=== PATIENT | male | born 1995 | race Caucasian/White ===

== ENCOUNTER → 2022-09-29 15:46 | Outpatient (BNVA) | payer SELFPAY | PROVIDERS: PCP Family Medicine; Visit Provider Family Medicine | DX: Z90.5 Acquired absence of kidney (principal) | CPT/HCPCS: 80053; 85025 ==

== ENCOUNTER 2022-12-17 13:54 | Emergency (ER) | payer OTHER, SELFPAY ==
[2022-12-17 13:55] VITALS: BP 135/88; PULSE 94; RESP 16; TEMP 36.6; O2SAT 97
--- NOTE | 2022-12-17 15:24 | W.ED.HA ---
HPI - Headache General: Chief Complaint: Headache Stated Complaint: Weakness, Head pain, Blurred vision Time Seen by Provider: 12/17/22 15:24 Source: patient Mode of arrival: ambulatory History of Present Illness: 27-year-old male presents emergency room complaining of dizziness weakness and some headache is has a history of hypertension has not been taking his blood pressure medications regularly. He previously had a nephrectomy for an unknown reason as a child. He did take his blood pressure medicines yesterday had not taken them for several days his blood pressure decreased to the point where he had a syncopal episode while working yesterday. He has not taken them today. No chest pain or weakness he does have some discomfort in his left leg mostly in the posterior aspect of the leg MD elicited complaint: headache Onset (ago): day(s) Location: frontal Severity: moderate Quality & Timing: throbbing Exacerbating factors: none Relieving factors: nothing Associated symptoms: Reports malaise; Deny chest pain, confusion, cough, diaphoresis, eye pain, eye redness, fever(s), lightheadedness, loss of vision, nausea, neck stiffness, numbness, paresthesias, photophobia, pre-syncope, rash, seizures, short of breath, sound sensitivity, syncope, vomiting or weakness Review of Systems Const: Reports: fatigue and malaise; Denies: fever(s), chills or diaphoresis ENMT: Denies: throat pain, ear or mastoid pain, nasal discharge or nasal congestion Card: Denies: chest pain, palpitations, lightheadedness, syncope or pre-syncope Resp: Denies: dyspnea, productive cough or non-productive cough GI: Denies: abdominal pain, nausea or vomiting : Denies: flank pain, dysuria, urinary frequency or urinary urgency Skin/Breast: Denies: rash Neuro: Denies: confusion PFSH ED PFSH: Medical History History of trigger finger surgical repair HTN (hypertension) Surgical History History of nephrectomy, left (~2007) Family History Grandmother Cancer ovarian Family/Other Cancer x3 maternal aunts-ovarian Other Anesthesia complication CAD (coronary artery disease) Dementia Diabetes Hyperlipidemia Hypertension Lung disease Stroke Denies family history of Clotting disorder Psychiatric illness Chronic kidney disease (CKD) Bleeding disorder Social History Smoking and tobacco status: former smoker Alcohol intake: never Substance/Drug Use: former Date of last use: 07/2022 marijuana Lives independently: Yes Marital status: Single Number of children: 0 Current occupational status: employed Current occupation: EVS in [employer] Current gender identity: Male Special guadalupe needs: No Agree to transfusion: Yes Physical Exam Const: GENERAL APPEARANCE: cooperative and comfortable ORIENTATION/CONSCIOUSNESS: Yes awake, Yes oriented to person, Yes oriented to place and Yes oriented to time HENMT: COMMON NORMALS: normocephalic, atraumatic and hearing grossly normal bilaterally HEAD & SCALP: normocephalic and atraumatic Eye: DIRECT OPHTHALMOSCOPY: No photophobia Resp: COMMON NORMALS: normal respiratory effort, No retractions, No use of accessory muscles and clear to auscultation bilaterally AUSCULTATION: clear to auscultation bilaterally Cardio: COMMON NORMALS: regular rate, regular rhythm and No murmurs present (Cardio) RATE: regular rate RHYTHM: regular rhythm GI: COMMON NORMALS: Soft to palpation and No hepatosplenomegaly present AUSCULTATION: Yes normoactive bowel sounds PALPATION: Yes Soft to palpation, No Tenderness to palpation present (GI), No Guarding due to palpation present (GI) and Yes No hepatosplenomegaly present Extremity: COMMON NORMALS: normal to inspection, capillary refill normal, no clubbing, cyanosis or edema, no calf tenderness and no pedal edema Neuro: SENSORIUM/ORIENTATION: Yes oriented to person, Yes oriented to place and Yes oriented to time Skin: COMMON NORMALS: no rashes or lesions noted GENERAL SKIN EXAM: no rashes or lesions noted Course Vital Signs: Vital signs: Vital Signs Temperature 97.8 F 12/17/22 13:55 Pulse Rate 94 12/17/22 13:55 Respiratory Rate 16 12/17/22 13:55 Blood Pressure 135/88 12/17/22 13:55 Pulse Oximetry 97 12/17/22 13:55 Oxygen Delivery Me thod Room Air 12/17/22 13:55 MDM - Headache Medical Decision Making Exam shows no focal neurologic deficit noted. Patient prescribed his blood pressure is elevated he was given amlodipine 10 lab work was completed blood pressure normalized he states he is feeling much better he still has no focal deficits. Recommend he stop the enalapril and Hydrocort chlorothiazide and switch to amlodipine 5 mg daily continue prazosin monitor blood sugar pressures at home and recheck with his doctor early next week. Medical Records I reviewed the patient's medical records. Lab Data I reviewed the patient's lab results. 12/17/22 15:48 12/17/22 15:48 Radiology Impressions Chest X-Ray 12/17/22 15:26 IMPRESSION: No acute findings. Laboratory Results WBC 10.9 10^3/uL (4.0-10.0) H 12/17/22 15:48 RBC 5.60 10^6/uL (4.1-5.3) H 12/17/22 15:48 Hgb 16.1 g/dL (11.7-16.6) 12/17/22 15:48 Hct 50.0 % (42.0-52.0) 12/17/22 15:48 MCV 89.3 fl (80-94) 12/17/22 15:48 MCH 28.8 pg (28.0-34.0) 12/17/22 15:48 MCHC 32.2 g/dL (30.0-36.0) 12/17/22 15:48 RDW 13.1 % (12.1-15.1) 12/17/22 15:48 Plt Count 291 10^3/cmm (130-400) 12/17/22 15:48 MPV 10.9 fL (7.4-10.4) H 12/17/22 15:48 Neut % (Auto) 65.5 % 12/17/22 15:48 Lymph % (Auto) 21.6 % 12/17/22 15:48 [place] % (Auto) 5.7 % 12/17/22 15:48 Eos % (Auto) 6.4 % 12/17/22 15:48 Baso % (Auto) 0.5 % 12/17/22 15:48 Neut # (Auto) 7.15 10^3/uL (1.8-7.7) 12/17/22 15:48 Lymph # (Auto) 2.4 10^3/uL (0.8-4.8) 12/17/22 15:48 [place] # (Auto) 0.6 10^3/uL (0.2-0.9) 12/17/22 15:48 Eos # (Auto) 0.7 10^3/uL (0.0-0.8) 12/17/22 15:48 Baso # (Auto) 0.1 10^3/uL (0.0-0.1) 12/17/22 15:48 Nucleated RBC % (auto) 0 % 12/17/22 15:48 Nucleated RBCs # 0.0 /100WBC 12/17/22 15:48 Sodium 138 mmol/L (136-145) 12/17/22 15:48 Potassium 4.8 mmol/L (3.5-5.1) 12/17/22 15:48 Chloride 101 mmol/L (98-107) 12/17/22 15:48 Carbon Dioxide 26 mmol/L (22-29) 12/17/22 15:48 Anion Gap 15.8 (5-19) 12/17/22 15:48 BUN 41 mg/dL (6-20) H 12/17/22 15:48 Creatinine 1.6 mg/dL (0.7-1.2) H 12/17/22 15:48 GFR Calculation 51.7 mL/min (90-130) L 12/17/22 15:48 Glucose 88 mg/dL (65-115) 12/17/22 15:48 Calculated Osmolality 296 mOsm/kg (285-295) H 12/17/22 15:48 Calcium 10.0 mg/dL (8.5-10.5) 12/17/22 15:48 Total Bilirubin 0.3 mg/dL (0.15-1.2) 12/17/22 15:48 AST 25 U/L (0-40) 12/17/22 15:48 ALT 25 U/L (0-41) 12/17/22 15:48 Alkaline Phosphatase 75 U/L (40-130) 12/17/22 15:48 Total Protein 7.6 g/dL (6.6-8.7) 12/17/22 15:48 Albumin 4.4 g/dL (3.5-5.2) 12/17/22 15:48 Globulin 3.2 g/dL (1.3-4.6) 12/17/22 15:48 Urine Color Yellow (Yellow) 12/17/22 16:00 Urine Appearance Clear (CLEAR) 12/17/22 16:00 Urine pH 5 (5-7) 12/17/22 16:00 Ur Specific [place] 1.020 (1.005-1.030) 12/17/22 16:00 Urine Protein 3+ (Negative) H 12/17/22 16:00 Urine Glucose (UA) Norm (Normal) 12/17/22 16:00 Urine Ketones Negative (Negative) 12/17/22 16:00 Urine Blood Neg (Negative) 12/17/22 16:00 Urine Nitrate Negative (Negative) 12/17/22 16:00 Urine Bilirubin Neg (Negative) 12/17/22 16:00 Urine Urobilinogen Norm mg/dL (Negative) 12/17/22 16:00 Ur Leukocyte Esterase Negative (Negative) 12/17/22 16:00 Urine RBC None /hpf (0-2) 12/17/22 16:00 Urine WBC None /hpf (0-5) 12/17/22 16:00 Ur Squamous Epith Cells None /hpf (0-5) 12/17/22 16:00 Amorphous Sediment Not Reportable 12/17/22 16:00 Urine Bacteria Trace /hpf (NONE) 12/17/22 16:00 Discharge Plan Discharge Patient Disposition: Home Clinical Impression: HTN (hypertension) Condition: Stable Prescriptions: New amlodipine 5 mg tablet 5 mg PO DAILY Qty: 30 0RF Discontinued hydrochlorothiazide 50 mg tablet 25 mg PO DAILY enalapril maleate 20 mg tablet 20 mg PO DAILY Qty: 30 1RF No Action fluoxetine 20 mg tablet 40 mg PO DAILY Qty: 60 0RF Rx Instructions: 1 tablet x 4 days then 2 tablets daily buspirone 10 mg tablet 10 mg PO BID Qty: 60 0RF prazosin 1 mg capsule 1 mg PO .qhs Qty: 30 0RF Discharge Orders: Discharge ED (Routine); Ordered 12/17/22 Ordered By: Geoff Castillo Referrals: Mike Campos MD [Primary Care Provider] - Discharge Diet: Usual diet Discharge Activity: Resume usual activity Patient Instructions: Opioid Safety, Pain Management Activity Restrictions/Additional Instructions: You are seen today for headache and elevated blood pressure. Recommend you stop the enalapril and hydrochlorothiazide and instead take amlodipine 5 mg daily continue prazosin monitor blood pressures at home and recheck with your primary care doctor next week to review. Stand Alone Forms: Work/School Release Coding Level of Care Code ED Medical Imaging Technologist for Alee Peña
--- NOTE | 2022-12-17 15:25 | ECG_ITS ---
[facility] Test Date: 2022-12-17 Pat Name: Pranav Roberts Department: Room: Gender: Male Cinder Block Mason: : 1995 Requested By: Geoff Caba Order Number: [id number] Ruben MD: Minerva Hoang M.D. Measurements Intervals [place] Rate: 73 P: 7 TN: 184 QRS: 69 QRSD: 86 T: 48 QT: 347 QTc: 384 Interpretive Statements SINUS RHYTHM No previous ECG available for comparison Electronically Signed On 12-18-2022 5:34:49 CDT by Minerva Hoang M.D. [email or web address]
--- NOTE | 2022-12-17 15:26 | XRR_ITS ---
PROCEDURE INFORMATION: Exam: XR Chest Exam date and time: 12/17/2022 3:41 PM Age: 27 years old Clinical indication: Cough and dyspnea; Additional info: Dyspnea/cough TECHNIQUE: Imaging protocol: Radiologic exam of the chest. Views: 1 view. COMPARISON: No relevant prior studies available. FINDINGS: Lungs: Unremarkable. No consolidation. Pleural spaces: Unremarkable. No pleural effusion. No pneumothorax. Heart/Mediastinum: Unremarkable. No cardiomegaly. Bones/joints: Unremarkable. XR/XR chest 1V portable [id number] IMPRESSION: No acute findings.
[2022-12-17] MEDS: amlodipine 5 mg Tablet 2.5 MG PO (15:43)
--- NOTE | 2022-12-17 15:50 | PC.NURSE ---
PT PLACED ON CONTINUOUS SPO2, NIBP, AND CM.
[2022-12-17 16:02] LABS: Basophils # 0.1 10^3/uL (0.0-0.1); Basophils % 0.5 %; Eosinophils # 0.7 10^3/uL (0.0-0.8); Eosinophils % 6.4 %; Hemoglobin 16.1 g/dL (11.7-16.6); Lymphocytes # 2.4 10^3/uL (0.8-4.8); Lymphocytes % 21.6 %; Mean Corpuscular HGB Conc 32.2 g/dL (30.0-36.0); Mean Corpuscular Hemoglobin 28.8 pg (28.0-34.0); Mean Corpuscular Volume 89.3 fl (80-94); Mean Platelet Volume 10.9 fL (7.4-10.4); Monocytes # 0.6 10^3/uL (0.2-0.9); Monocytes % 5.7 %; Neutrophils # 7.15 10^3/uL (1.8-7.7); Neutrophils % 65.5 %; Nucleated Red Blood Cells % 0 %; Platelet Count 291 10^3/cmm (130-400); Red Cell Distribution Width 13.1 % (12.1-15.1); White Blood Count 10.9 10^3/uL (4.0-10.0)
[2022-12-17 16:23] LABS: Alanine Aminotransferase 25 U/L (0-41); Albumin Level 4.4 g/dL (3.5-5.2); Alkaline Phosphatase 75 U/L (40-130); Anion Gap 15.8 (5-19); Aspartate Amino Transferase 25 U/L (0-40); Blood Urea Nitrogen 41 mg/dL (6-20); Carbon Dioxide 26 mmol/L (22-29); Chloride 101 mmol/L (98-107); Globulin 3.2 g/dL (1.3-4.6); Glomerular Filtration Rate 51.7 mL/min (90-130); Glucose 88 mg/dL (65-115); Osmolality Calculated 296 mOsm/kg (285-295); Potassium 4.8 mmol/L (3.5-5.1); Sodium 138 mmol/L (136-145); Total Bilirubin 0.3 mg/dL (0.15-1.2); Total Protein 7.6 g/dL (6.6-8.7)
[2022-12-17 16:28] LABS: Add Urine Microscopic? YES; Bacteria Urine TRACE /hpf; Bilirubin Urine Neg (Negative); Blood Urine Neg (Negative); Glucose Urine UA Norm (Normal); Ketones Urine Negative (Negative); Leukocyte Esterase Urine Negative (Negative); Nitrate Urine Negative (Negative); Protein Urine 3+ (Negative); Urine Appearance Clear (CLEAR); Urine Color Yellow (Yellow); Urobilinogen Urine Norm (Negative); pH Urine 5 (5-7)
[2022-12-17 16:29] LABS: Add Urine Culture? No
[2022-12-17 16:42] VITALS: BP 130/99; PULSE 80; RESP 16; O2SAT 98
== END 2022-12-17 16:43 | disposition home or self-care (01) ==
PROVIDERS: Emergency Provider Family Medicine; PCP Family Medicine
DX: I10 Essential (primary) hypertension (principal); Z87.891 Personal history of nicotine dependence; Z90.5 Acquired absence of kidney
CPT/HCPCS: 71045; 80053; 81001; 85025; 93005; 99285

== ENCOUNTER 2023-06-30 01:18 | Emergency (ER) | payer OTHER, SELFPAY ==
[2023-06-30 01:30] VITALS: BP 168/120; PULSE 100; RESP 20; TEMP 36.6; O2SAT 97
[2023-06-30 01:34] VITALS: BP 168/120
[2023-06-30] MEDS: cloNIDine 0.1 mg Tablet 0.2 MG PO (01:34)
--- NOTE | 2023-06-30 02:02 | W.ED.RECABL ---
HPI - Recheck/Abnormal Lab/Rx General: Chief Complaint: Recheck/Abnormal Lab/Rx Stated Complaint: High BP Time Seen by Provider: 06/30/23 01:27 History of Present Illness: Patient presents to the ER with complaints of elevated blood pressure and headache. Patient is currently on amlodipine 10 mg, losartan 100 mg, he said these have not been working to control his blood pressure but tonight his blood pressure became really elevated and he started having a headache. Review of Systems General: Reports: 10 or more systems reviewed and unremarkable except in HPI and below PFSH ED PFSH: Medical History History of trigger finger surgical repair HTN (hypertension) Surgical History History of nephrectomy, left (~2007) Family History Grandmother Cancer ovarian Family/Other Cancer x3 maternal aunts-ovarian Other Anesthesia complication CAD (coronary artery disease) Dementia Diabetes Hyperlipidemia Hypertension Lung disease Stroke Denies family history of Clotting disorder Psychiatric illness Chronic kidney disease (CKD) Bleeding disorder Social History Smoking and tobacco/nicotine status: former use of tobacco/nicotine Alcohol intake: never Substance/Drug Use: former Date of last use: 07/2022 marijuana Lives independently: Yes Marital status: Single Number of children: 0 Current occupational status: employed Current occupation: [employer]S in [employer] Current gender identity: Male Special guadalupe needs: No Agree to transfusion: Yes Physical Exam HENMT: COMMON NORMALS: normocephalic, atraumatic, hearing grossly normal bilaterally, external ears normal, Normal external nose present, moist oral mucous membranes and oropharynx normal HEAD & SCALP: normocephalic and atraumatic NOSE: Normal external nose present EXTERNAL EAR: Yes external ears normal Neck/C-Spine: COMMON NORMALS: no JVD Resp: COMMON NORMALS: normal respiratory effort, No retractions, No use of accessory muscles and clear to auscultation bilaterally AUSCULTATION: clear to auscultation bilaterally Cardio: COMMON NORMALS: no JVD, regular rate, regular rhythm, S1 normal heart sound present, S2 normal heart sound present, No gallops present (Cardio), No clicks present (Cardio), No murmurs present (Cardio) and No rub (Cardio) RATE: regular rate RHYTHM: regular rhythm HEART SOUNDS: S1 normal heart sound present and S2 normal heart sound present GI: COMMON NORMALS: Normal to inspection, nondistended, normoactive bowel sounds present, Soft to palpation, non-tender, No hepatosplenomegaly present and no masses PALPATION: Yes Soft to palpation and Yes No hepatosplenomegaly present Course Vital Signs: Vital signs: Vital Signs Temperature 98 F 06/30/23 01:30 Pulse Rate 100 06/30/23 01:30 Respiratory Rate 20 H 06/30/23 01:30 Blood Pressure 168/120 06/30/23 01:34 Pulse Oximetry 97 06/30/23 01:30 MDM - Recheck/Abnormal Lab/Rx Medical Decision Making Patient did not want any lab work performed at this time. Just to help with his blood pressure. Patient was given 0.2 mg clonidine and rechecked in approximately 30 minutes blood pressure had improved some but patient's headache had totally gone away. Patient blood pressure continues improved to 141/90. Patient will be placed on hydrochlorothiazide 25 mg to take daily with his current blood pressure medicine and given a prescription for clonidine 0.1 mg 1 p.o. 3 times daily to take if blood pressures greater than 150/100. Differential Diagnosis Unlikely encounter for medication refill, encounter for wound recheck, encounter for recheck of burn, encounter for removal of sutures or warfarin-induced coagulopathy Medical Records I reviewed the patient's medical records. Lab Data I reviewed the patient's lab results. No radiology studies performed this visit Discharge Plan Discharge Patient Disposition: Home Clinical Impression: HTN (hypertension), Headache Condition: Stable Prescriptions: No Action amlodipine 10 mg tablet 10 mg PO DAILY Qty: 90 1RF losartan 100 mg tablet 100 mg PO DAILY Qty: 90 1RF loratadine 10 mg tablet 10 mg PO DAILY Qty: 20 0RF Discharge Orders: Discharge ED (Routine); Ordered 06/30/23 Ordered By: Sherwin Young Referrals: Mike Campos MD [Primary Care Provider] - 1 week Patient Instructions: Hypertension (ED), Headache Activity Restrictions/Additional Instructions: Please take all medicine as prescribed. Please take the additional blood pressure medicine HCTZ 1 pill daily and the clonidine 0.1 mg 1 pill 3 times a day only if your blood pressure greater than 150/100. Please keep a blood pressure log where you take your blood pressure several times throughout the day and take this to your follow-up appointment with your family practice doctor within the next 7 to 10 days. Coding Level of Care Code ED Concrete Tester for Alee Peña
[2023-06-30 02:34] VITALS: BP 128/85; O2SAT 97
== END 2023-06-30 02:35 | disposition home or self-care (01) ==
PROVIDERS: Emergency Provider Emergency Medicine; PCP Family Medicine
DX: I10 Essential (primary) hypertension (principal); R51.9 Headache, unspecified; Z87.891 Personal history of nicotine dependence
CPT/HCPCS: 99283

== ENCOUNTER 2023-07-28 00:59 | Emergency (ER) | payer OTHER, SELFPAY ==
[2023-07-28 01:04] VITALS: BP 148/94; PULSE 78; RESP 16; TEMP 36.6; O2SAT 92
--- NOTE | 2023-07-28 01:07 | W.ED.GENADLT ---
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 States the needle stuck him on the left index finger. It was an 18-gauge needle unsure if it been used. Associated symptoms: Deny chest pain or rash Review of Systems Const: Denies: fever(s) Card: Denies: chest pain GI: Denies: abdominal pain Skin/Breast: Denies: rash PFSH ED PFSH: Medical History History of trigger finger surgical repair HTN (hypertension) Surgical History History of nephrectomy, left (~2007) Family History Grandmother Cancer ovarian Family/Other Cancer x3 maternal aunts-ovarian Other Anesthesia complication CAD (coronary artery disease) Dementia Diabetes Hyperlipidemia Hypertension Lung disease Stroke Denies family history of Clotting disorder Psychiatric illness Chronic kidney disease (CKD) Bleeding disorder Social History Smoking and tobacco/nicotine status: former use of tobacco/nicotine Alcohol intake: never Substance/Drug Use: former Date of last use: 07/2022 marijuana Lives independently: Yes Marital status: Single Number of children: 0 Current occupational status: employed Current occupation: EVS in [employer] Current gender identity: Male Special guadalupe needs: No Agree to transfusion: Yes Physical Exam Const: COMMON NORMALS: no acute distress HENMT: COMMON NORMALS: normocephalic HEAD & SCALP: normocephalic Eye: COMMON NORMALS: conjunctivae normal CONJUNCTIVA: Yes conjunctivae normal Chest: COMMONS NORMALS: normal inspection of the chest Resp: COMMON NORMALS: normal respiratory effort Cardio: COMMON NORMALS: regular rate RATE: regular rate Extremity: NARRATIVE EXTREMITY EXAM: Needlestick to left ring finger Course Vital Signs: Vital signs: Vital Signs Temperature 97.8 F 07/28/23 01:04 Pulse Rate 78 07/28/23 01:04 Respiratory Rate 16 07/28/23 01:04 Blood Pressure 148/94 07/28/23 01:04 Pulse Oximetry 92 07/28/23 01:04 MDM - General Adult Medical Decision Making Patient presents here with needlestick injury to left hand did draw blood work patient stable for discharge No radiology studies performed this visit Discharge Plan Discharge Patient Disposition: Home Clinical Impression: Needlestick injury accident Condition: Stable Prescriptions: No Action amlodipine 10 mg tablet 10 mg PO DAILY Qty: 90 1RF losartan 100 mg tablet 100 mg PO DAILY Qty: 90 1RF loratadine 10 mg tablet 10 mg PO DAILY Qty: 20 0RF hydrochlorothiazide 25 mg tablet 25 mg PO QAM Qty: 30 0RF clonidine HCl 0.1 mg tablet 0.1 mg PO Q8H PRN (Reason: For blood pressure greater than 150/100.) Qty: 30 0RF Discharge Orders: Discharge ED (Routine); Ordered 07/28/23 Ordered By: Satnam Cook Referrals: Mike Campos MD [Primary Care Provider] - Patient Instructions: Needle Stick Injuries (ED) Coding Level of Care Code ED Marine Equipment Research Engineer for Alee Peña
--- NOTE | 2023-07-28 02:04 | PC.NURSE ---
Pt. had blood draw by lab and discharged to follow up with powerhouse electrician on needle stick protocol
[2023-07-28 02:30] LABS: HIV 1 & 2 Antibody Non-Reactive (Non-Reactiv); HIV 1 & 2 Antigen Non-Reactive (Non-Reactiv)
[2023-07-28 02:41] LABS: Hepatitis A Antibody IgM Non-Reactive (Nonreactive); Hepatitis B Core AB, Total Non-Reactive (Nonreactive); Hepatitis B Surface AB < 3.5 (11.5-1000); Hepatitis B Surface Antigen Non-Reactive (Nonreactive); Hepatitis C Virus Antibody Non-Reactive (Nonreactive)
== END 2023-07-28 02:05 | disposition home or self-care (01) ==
PROVIDERS: Emergency Provider Emergency Medicine; PCP Family Medicine
DX: S61.231A Puncture wound without foreign body of left index finger without damage to nail, initial encounter (principal); W46.0XXA Contact with hypodermic needle, initial encounter; I10 Essential (primary) hypertension; Z87.891 Personal history of nicotine dependence
CPT/HCPCS: 36415; 86705; 86706; 86709; 86803; 87340; 87806; 99283

== ENCOUNTER 2023-08-29 12:32 | Outpatient (CLI) | payer OTHER, SELFPAY ==
--- NOTE | 2023-08-29 12:36 | XRR_ITS ---
PROCEDURE INFORMATION: Exam: XR Lumbosacral Spine Exam date and time: 08/29/2023 12:56 PM Age: 27 years old Clinical indication: Low back pain; Additional info: Lower sacral pain TECHNIQUE: Imaging protocol: Radiologic exam of the lumbosacral spine. Views: 2 or 3 views. COMPARISON: No relevant prior studies available. FINDINGS: Tubes, catheters and devices: Surgical clips noted anterior to the spine.No significant soft tissue pathology. Bones/joints: Minimal levocurvature. Minimal reverse listhesis from L2 through L4. Vertebral body and intervertebral disc heights are maintained. Facet joints are unremarkable. No acute fracture or dislocation. Soft tissues: See Tubes, catheters and devices finding. XR/XR lumbar spine 2-3V* [id number] IMPRESSION: No significant pathology.
== END 2023-08-29 12:33 | disposition home or self-care (01) ==
LOC: RAD 12:33
PROVIDERS: PCP Family Medicine; Visit Provider Nurse Practitioner Family
DX: M53.3 Sacrococcygeal disorders, not elsewhere classified (principal)
CPT/HCPCS: 72100

== ENCOUNTER → 2023-08-31 10:42 | Outpatient (BNVA) | payer OTHER, SELFPAY | PROVIDERS: PCP Family Medicine; Visit Provider Family Medicine | DX: I10 Essential (primary) hypertension (principal); L05.91 Pilonidal cyst without abscess; M53.3 Sacrococcygeal disorders, not elsewhere classified; Z90.5 Acquired absence of kidney | CPT/HCPCS: 80053 ==

== ENCOUNTER 2023-10-05 08:30 | Emergency (ER) | payer OTHER, SELFPAY ==
[2023-10-05] VITALS (7 sets, daily range): BP systolic 161–192; BP diastolic 120–132; PULSE 67–74; RESP 16–22; TEMP 37.2; O2SAT 95–100; BMI 32.5
--- NOTE | 2023-10-05 08:35 | XR_ITS ---
WS: [id number] Exam: XR femur RT min 2V* [id number] Date/Time of Exam: 10/05/2023 8:40 AM Reason For Exam: trauma, deformity There is a comminuted fracture at the proximal one third of the RIGHT femur. There is medial angulati on and overriding of the distal fragment. No dislocation identified. IMPRESSION: 1. Comminuted angulated fracture at the junction of the middle and proximal thirds of the femur.
--- NOTE | 2023-10-05 08:36 | CT_ITS ---
WS: [id number] CT HEAD TECHNIQUE: Noncontrast CT of the head obtained from the skullbase to the vertex. CLINICAL INFORMATION: Traumatic head pain COMPARISON: None. DLP: 1401.[address] scans at [facility] use at least one of these dose optimization techniques: automated e xposure control; mA and/or kV adjustment per patient size (includes targeted exams where dose is matc hed to clinical indication); or iterative reconstruction. FINDINGS: No evidence of intracranial hemorrhage or mass effect. Ventricular system and basal cisterns are srivastava nt. No extra-axial fluid collections. No evidence of mass or mass effect. Paranasal sinuses and mastoid air cells are well aerated. .Normal visualized soft tissues. IMPRESSION: 1. No evidence of intracranial hemorrhage or mass effect. 2. No acute intracranial findings.
--- NOTE | 2023-10-05 08:36 | CT_ITS ---
WS: [id number] CT CERVICAL TRAUMA TECHNIQUE: Noncontrast CT of the cervical spine with coronal and sagittal reformatted images. CLINICAL INFORMATION: trauma COMPARISON: None. DLP: 1401.[address] scans at [facility] use at least one of these dose optimization techniques: automated e xposure control; mA and/or kV adjustment per patient size (includes targeted exams where dose is matc hed to clinical indication); or iterative reconstruction. FINDINGS: Straightening of the normal cervical lordosis. Normal craniocervical junction. Normal C1-C2 articulat ion. Dens is normal in appearance. Normal occipital condyles. No high-grade spinal canal narrowing. N ormal C1 ring. No evidence of acute fracture or dislocation. Normal prevertebral soft tissues. Mastoids air cells are well aerated. IMPRESSION: No evidence of acute fracture or dislocation.
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
[2023-10-05] MEDS: HYDROmorphone 1 mg/mL INJ 1 mL IVP ×2 (08:41→09:23)
[2023-10-05] MEDS: ondansetron 2 mg/ML SDV 2 mL 4 MG IVP (08:42)
--- NOTE | 2023-10-05 08:56 | PC.PHAR ---
UNSURE IF PT HAS TAKEN MEDICATIONS TODAY, WILL FOLLOW UP AFTER CT. 10/05/23
[2023-10-05 08:57] LABS: Basophils # 0.1 10^3/uL (0.0-0.1); Basophils % 0.8 %; Eosinophils % 6.2 %; Hematocrit 41.8 % (37-53); Lymphocytes % 19.2 %; Mean Corpuscular HGB Conc 32.5 g/dL (30-55); Mean Corpuscular Hemoglobin 28.8 pg (27-33); Mean Corpuscular Volume 88.4 fl (82-101); Monocytes # 0.7 10^3/uL (0.2-0.9); Monocytes % 4.6 %; Neutrophils # 10.53 10^3/uL (1.8-7.7); Neutrophils % 68.7 %; Nucleated Red Blood Cells % 0 %; Platelet Count 280 10^3/cmm (157-399); Red Blood Count 4.73 10^6/uL (3.85-5.65); Red Cell Distribution Width 13.2 % (12.1-15.1); White Blood Count 15.33 10^3/uL (3.29-11.43)
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
[2023-10-05 09:09] LABS: Chloride 99 mmol/L (98-107); Potassium 3.9 mmol/L (3.5-5.1); Sodium 136 mmol/L (136-145)
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
[2023-10-05 09:28] LABS: Alanine Aminotransferase 25 U/L (0-41); Albumin Level 4.1 g/dL (3.5-5.2); Alkaline Phosphatase 81 U/L (40-130); Anion Gap 14.9 (5-19); Blood Urea Nitrogen 31 mg/dL (6-20); Carbon Dioxide 25 mmol/L (22-29); Globulin 2.4 g/dL (1.3-4.6); Glomerular Filtration Rate 44.8 mL/min (90-130); Glucose 110 mg/dL (65-115); Osmolality Calculated 289 mOsm/kg (285-295); Total Bilirubin 0.4 mg/dL (0.15-1.2); Total Protein 6.5 g/dL (6.6-8.7)
[2023-10-05 09:32] LABS: Creatinine Clr Calc Pharmacy 70.5193
[2023-10-05 09:34] LABS: Aspartate Amino Transferase 30 U/L (0-40)
--- NOTE | 2023-10-05 09:34 | ECG_ITS ---
[facility] Test Date: 2023-10-05 Pat Name: Pranav Roberts Department: Room: Gender: Male Sales Order Specialist: : 1995 Requested By: Marianne Caba Order Number: [id number] Miranda MD: Sudhakar Rodriguez M.D. Measurements Intervals [place] Rate: 68 P: 46 MS: 205 QRS: 46 QRSD: 102 T: 46 QT: 396 QTc: 422 Interpretive Statements SINUS RHYTHM Compared to ECG 12/17/2022 15:51:27 No significant changes Electronically Signed On 10-05-2023 9:46:23 CDT by Sudhakar Rodriguez M.D. [id number]
[2023-10-05] MEDS: HYDROmorphone 1 mg/mL INJ 1 mL 2 MG IVP ×2 (10:10→11:08)
== END 2023-10-05 11:30 | disposition short-term general hospital (02) ==
PROVIDERS: Emergency Provider Emergency Medicine; PCP Family Medicine
DX: S72.001A Fracture of unspecified part of neck of right femur, initial encounter for closed fracture (principal); I12.9 Hypertensive chronic kidney disease with stage 1 through stage 4 chronic kidney disease, or unspecified chronic kidney disease; N18.9 Chronic kidney disease, unspecified; Z87.891 Personal history of nicotine dependence; Z90.5 Acquired absence of kidney; V89.2XXA Person injured in unspecified motor-vehicle accident, traffic, initial encounter
CPT/HCPCS: 70450; 71045; 72125; 72192; 73552; 73700; 80053; 83605; 85025; 93005; 96374; 96375; 96376; 99285; J1170; J2405

== ENCOUNTER → 2023-10-18 15:20 | Outpatient (BNVA) | payer OTHER, SELFPAY | PROVIDERS: PCP Family Medicine; Visit Provider Family Medicine | DX: N18.32 Chronic kidney disease, stage 3b | CPT/HCPCS: 80048; 82570; 84156 ==

== ENCOUNTER 2023-10-19 12:43 | Outpatient (CLI) | payer OTHER, SELFPAY ==
--- NOTE | 2023-10-19 12:49 | US_ITS ---
WS: [id number] RENAL ULTRASOUND URINARY BLADDER ULTRASOUND HISTORY: CHRONIC KIDNEY DZ/STAGE 3A/ESSENTIAL HYPERTENSION COMPARISON: None available. TECHNIQUE: 2-D and color Doppler imaging of the kidney submitted. Right kidney: 10.5 cm x 4.8 cm x 5.7 cm. Echogenic kidney. RIGHT kidney is much more echogenic than the adjacent liver. No mass or hydronephro sis. Left kidney: Prior LEFT nephrectomy. Aorta: Normal. Urinary Bladder: Prevoid bladder volume is 634 mm. No intraluminal filling defect. No post void residual. Post void volume 11 mm. IMPRESSION: 1. Status post LEFT nephrectomy. 2. Normal size RIGHT kidney but very echogenic consistent with chronic medical renal disease. 3. No significant post void residual in the urinary bladder.
== END 2023-10-19 12:44 | disposition home or self-care (01) ==
PROVIDERS: PCP Family Medicine; Visit Provider Nurse Practitioner Gerontology
DX: I12.9 Hypertensive chronic kidney disease with stage 1 through stage 4 chronic kidney disease, or unspecified chronic kidney disease (principal); N18.31 Chronic kidney disease, stage 3a; Z90.5 Acquired absence of kidney
CPT/HCPCS: 76770; 76857

== ENCOUNTER 2023-11-15 13:51 | Outpatient (RCR) | payer OTHER, SELFPAY | END 2023-12-08 23:59 | disposition home or self-care (01) | LOC: SPT 13:51 | PROVIDERS: PCP Family Medicine; Visit Provider Family Medicine | DX: S72.91XD Unspecified fracture of right femur, subsequent encounter for closed fracture with routine healing (principal); X58.XXXD Exposure to other specified factors, subsequent encounter | CPT/HCPCS: 97110; 97161 ==

== ENCOUNTER 2023-12-09 06:00 | Outpatient (RCR) | payer OTHER, SELFPAY | END 2023-12-21 23:59 | disposition home or self-care (01) | LOC: SPT 06:00 | PROVIDERS: PCP Family Medicine; Visit Provider Family Medicine | DX: S72.91XD Unspecified fracture of right femur, subsequent encounter for closed fracture with routine healing (principal); X58.XXXD Exposure to other specified factors, subsequent encounter | CPT/HCPCS: 97110 ==

== ENCOUNTER 2023-12-12 12:07 | Outpatient (CLI) | payer OTHER, SELFPAY ==
--- NOTE | 2023-12-12 12:14 | XR_ITS ---
WS: [id number] XR femur RT min 2V* [id number] REASON FOR EXAM: fall on recently fractured femur FINDINGS: No previous postoperative examination for comparison. Long intramedullary tika and femoral neck nail fixation of proximal right femur fracture. Surgical appliances are intact and in proper position and alignment. Fracture fragments are in good position and alignment. Callus formation at the distal end of the fracture line. No new acute fracture identified. XR/XR femur RT min 2V* [id number] IMPRESSION: Healing proximal right femoral fracture with internal fixation. No acute abnorm ality identified.
== END 2023-12-12 12:08 | disposition home or self-care (01) ==
PROVIDERS: PCP Family Medicine; Visit Provider Family Medicine
DX: S72.91XA Unspecified fracture of right femur, initial encounter for closed fracture (principal); W19.XXXA Unspecified fall, initial encounter; Z96.698 Presence of other orthopedic joint implants
CPT/HCPCS: 73552

== ENCOUNTER 2024-02-03 03:42 | Emergency (ER) | payer OTHER, SELFPAY ==
[2024-02-03 03:52] VITALS: BP 149/105; PULSE 90; RESP 20; TEMP 36.6; O2SAT 99; BMI 31.0
[2024-02-03 04:04] VITALS: BP 149/105; PULSE 94; RESP 18; O2SAT 95
[2024-02-03 04:31] LABS: Basophils # 0.1 10^3/uL (0.0-0.1); Basophils % 0.8 %; Eosinophils # 0.5 10^3/uL (0.0-0.8); Eosinophils % 7.1 %; Hematocrit 39.7 % (37-53); Mean Corpuscular Hemoglobin 26.7 pg (27-33); Mean Corpuscular Volume 83.4 fl (82-101); Mean Platelet Volume 10.4 fL (7.4-10.4); Monocytes # 0.4 10^3/uL (0.2-0.9); Neutrophils # 4.25 10^3/uL (1.8-7.7); Neutrophils % 58.8 %; Nucleated Red Blood Cells % 0 %; Platelet Count 316 10^3/cmm (157-399); Red Blood Count 4.76 10^6/uL (3.85-5.65); White Blood Count 7.22 10^3/uL (3.29-11.43)
[2024-02-03 04:41] LABS: Alanine Aminotransferase 13 U/L (0-41); Albumin Level 3.9 g/dL (3.5-5.2); Alkaline Phosphatase 288 U/L (40-130); Aspartate Amino Transferase 15 U/L (0-40); Blood Urea Nitrogen 13 mg/dL (6-20); C Reactive Protein 13.2 mg/L (0.0-4.9); Calcium 8.9 mg/dL (8.5-10.5); Carbon Dioxide 26 mmol/L (22-29); Chloride 104 mmol/L (98-107); Globulin 3.1 g/dL (1.3-4.6); Glomerular Filtration Rate 47.9 mL/min (90-130); Glucose 128 mg/dL (65-115); Lipase 25 U/L (13-60); Osmolality Calculated 292 mOsm/kg (285-295); Sodium 140 mmol/L (136-145); Total Bilirubin 0.3 mg/dL (0.15-1.2)
[2024-02-03 05:03] LABS: D Dimer 1.22 ug/mLFEU (0-0.59)
[2024-02-03] MEDS: sodium chloride 0.9% 1,000 ML 999 ML IV (05:03)
[2024-02-03] MEDS: HYDROmorphone 1 mg/mL INJ 1 mL IVP (05:03)
[2024-02-03] MEDS: ondansetron 2 mg/ML SDV 2 mL 4 MG IVP (05:03)
--- NOTE | 2024-02-03 05:05 | ED_ITS ---
Documented by User: Tucker Rodriguez DO 02/03/24 16:34 HPI - Abdominal Pain 2 General: Chief Complaint: Abdominal Pain Stated Complaint: rib flank right side pain Time Seen by Provider: 02/03/24 04:42 History of Present Illness: 28-year-old male with a history of left nephrectomy, and chronic kidney disease. Presents with right-sided flank pain that was sudden onset last night. He is not overly tender to touch. Perhaps some mild shortness of breath. No vomiting. PFSH ED 2 PFSH: Medical History History of trigger finger surgical repair HTN (hypertension) Surgical History History of nephrectomy, left (~2007) Family History Grandmother Cancer ovarian Family/Other Cancer x3 maternal aunts-ovarian Other Anesthesia complication CAD (coronary artery disease) Dementia Diabetes Hyperlipidemia Hypertension Lung disease Stroke Denies family history of Clotting disorder Psychiatric illness Chronic kidney disease (CKD) Bleeding disorder Social History Smoking and tobacco/nicotine status: former use of tobacco/nicotine Alcohol intake: never Substance/Drug Use: former Date of last use: 07/2022 marijuana Lives independently: Yes Marital status: Single Number of children: 0 Current occupational status: employed Current occupation: [employer] in [employer] Current gender identity: Male Special guadalupe needs: No Agree to transfusion: Yes Physical Exam 2 Const: COMMON NORMALS: no acute distress GENERAL APPEARANCE: cooperative; not ill appearing and not frail appearing HENMT: COMMON NORMALS: normocephalic, atraumatic and Normal external nose present HEAD & SCALP: normocephalic and atraumatic FACE & SINUS: normal facial exam and face symmetric NOSE: Normal external nose present Eye: COMMON NORMALS: Equal, round and reactive pupils present and EOMs intact bilaterally PUPIL: Yes Equal, round and reactive pupils present Neck/C-Spine: GENERAL: Yes trachea midline Chest: CHEST: Yes Symmetrical chest wall rise Resp: COMMON NORMALS: normal respiratory effort, No retractions, No use of accessory muscles and clear to auscultation bilaterally AUSCULTATION: clear to auscultation bilaterally Cardio: COMMON NORMALS: regular rate and regular rhythm RATE: regular rate RHYTHM: regular rhythm GI: COMMON NORMALS: Normal to inspection, nondistended, normoactive bowel sounds present Extremity: COMMON NORMALS: no pedal edema Neuro: ARCENIO COMA SCALE: document GCS findings Arcenio coma scale eye opening: Spontaneous [place] coma scale verbal response: Orientated Arcenio coma scale motor response: Obey commands [place] coma scale total score: 15 S ENSORY EXAM: Yes extremities (intact) Psych: COMMON NORMALS: speech normal SPEECH: Yes normal speech Skin: COMMON NORMALS: no rashes or lesions noted GENERAL SKIN EXAM: no rashes or lesions noted Course 2 Vital Signs: Vital signs: Vital Signs Temperature 98 F 02/03/24 03:52 Pulse Rate 94 02/03/24 04:04 Respiratory Rate 16 02/03/24 06:17 Blood Pressure 149/105 02/03/24 04:04 Pulse Oximetry 96 02/03/24 06:17 Oxygen Delivery Me thod Room Air 02/03/24 06:17 MDM - Abdominal Pain Medical Decision Making 28-year-old male with chronic kidney disease. He presents with right-sided flank pain, chest pain, nausea. White blood cell count is 7. Hemoglobin is 12. His D-dimer is significantly elevated at 1.2. CRP is minimally elevated at 13. Other laboratory is not remarkable. Urinalysis is pending. CTA of the chest with abdomen pelvis follow-through is pending as well. Lab Data 02/03/24 03:58 02/03/24 03:58 Labs/Radiology: Radiology Impressions Chest/Abdomen/Pelvis CT 02/03/24 05:09 IMPRESSION: 1. No evidence of pulmonary embolus. 2. Long segment thickening of the esophageal mucosa suggestive of reflux esophagitis. 3. Multiple nodular opacities at the left lung base, likely infectious in etiology. Hypersensitivity pneumonitis may present a similar picture. IMPRESSION: 1. No right renal or obstructive ureteral calculi identified. There is no hydronephrosis. 2. Wall thickening of gastric, duodenal and bowel loops suggestive of gastroenteritis. 3. A 10 mm indeterminate lesion in the right lobe of the liver. Correlation with abdominal MRI may be helpful for further characterization if clinically indicated. Laboratory Results WBC 7.22 10^3/uL (3.29-11.43) 02/03/24 03:58 RBC 4.76 10^6/uL (3.85-5.65) 02/03/24 03:58 Hgb 12.70 g/dL (11.27-16.99) 02/03/24 03:58 Hct 39.7 % (37-53) 02/03/24 03:58 MCV 83.4 fl (82-101) 02/03/24 03:58 MCH 26.7 pg (27-33) L 02/03/24 03:58 MCHC 32.0 g/dL (30-55) 02/03/24 03:58 RDW 14.0 % (12.1-15.1) 02/03/24 03:58 Plt Count 316 10^3/cmm (157-399) 02/03/24 03:58 MPV 10.4 fL (7.4-10.4) 02/03/24 03:58 Neut % (Auto) 58.8 % 02/03/24 03:58 Lymph % (Auto) 27.0 % 02/03/24 03:58 [place] % (Auto) 6.0 % 02/03/24 03:58 Eos % (Auto) 7.1 % 02/03/24 03:58 Baso % (Auto) 0.8 % 02/03/24 03:58 Neut # (Auto) 4.25 10^3/uL (1.8-7.7) 02/03/24 03:58 Lymph # (Auto) 2.0 10^3/uL (0.8-4.8) 02/03/24 03:58 [place] # (Auto) 0.4 10^3/uL (0.2-0.9) 02/03/24 03:58 Eos # (Auto) 0.5 10^3/uL (0.0-0.8) 02/03/24 03:58 Baso # (Auto) 0.1 10^3/uL (0.0-0.1) 02/03/24 03:58 Nucleated RBC % (auto) 0 % 02/03/24 03:58 Nucleated RBCs # 0.0 /100WBC 02/03/24 03:58 D-Dimer 1.22 ug/mLFEU (0-0.59) H 02/03/24 03:58 Sodium 140 mmol/L (136-145) 02/03/24 03:58 Potassium 4.0 mmol/L (3.5-5.1) 02/03/24 03:58 Chloride 104 mmol/L (98-107) 02/03/24 03:58 Carbon Dioxide 26 mmol/L (22-29) 02/03/24 03:58 Anion Gap 14.0 (5-19) 02/03/24 03:58 BUN 13 mg/dL (6-20) 02/03/24 03:58 Creatinine 1.7 mg/dL (0.7-1.2) H 02/03/24 03:58 GFR Calculation 47.9 mL/min (90-130) L 02/03/24 03:58 Glucose 128 mg/dL (65-115) H 02/03/24 03:58 Calculated Osmolality 292 mOsm/kg (285-295) 02/03/24 03:58 Calcium 8.9 mg/dL (8.5-10.5) 02/03/24 03:58 Total Bilirubin 0.3 mg/dL (0.15-1.2) 02/03/24 03:58 AST 15 U/L (0-40) 02/03/24 03:58 ALT 13 U/L (0-41) 02/03/24 03:58 Alkaline Phosphatase 288 U/L (40-130) H 02/03/24 03:58 C-Reactive Protein 13.2 mg/L (0.0-4.9) H 02/03/24 03:58 Total Protein 7.0 g/dL (6.6-8.7) 02/03/24 03:58 Albumin 3.9 g/dL (3.5-5.2) 02/03/24 03:58 Globulin 3.1 g/dL (1.3-4.6) 02/03/24 03:58 Lipase 25 U/L (13-60) 02/03/24 03:58 Urine Color Yellow (Yellow) 02/03/24 05:55 Urine Appearance Clear (CLEAR) 02/03/24 05:55 Urine pH 7 (5-7) 02/03/24 05:55 Ur Specific [place] 1.005 (1.005-1.030) 02/03/24 05:55 Urine Protein 2+ (Negative) H 02/03/24 05:55 Urine Glucose (UA) Norm (Normal) 02/03/24 05:55 Urine Ketones Negative (Negative) 02/03/24 05:55 Urine Blood Neg (Negative) 02/03/24 05:55 Urine Nitrate Negative (Negative) 02/03/24 05:55 Urine Bilirubin Neg (Negative) 02/03/24 05:55 Urine Urobilinogen Norm mg/dL (Negative) 02/03/24 05:55 Ur Leukocyte Esterase Negative (Negative) 02/03/24 05:55 Urine RBC None /hpf (0-2) 02/03/24 05:55 Urine WBC 0-4 /hpf (0-5) H 02/03/24 05:55 Ur Squamous Epith Cells None /hpf (0-5) 02/03/24 05:55 Amorphous Sediment Not Reportable 02/03/24 05:55 Urine Bacteria Trace /hpf (NONE) 02/03/24 05:55 Discharge Plan Discharge Patient Disposition: Home Clinical Impression: Gastroenteritis Condition: Stable Prescriptions: New promethazine 25 mg tablet 25 mg PO Q6H PRN (Reason: nausea and vomiting) Qty: 20 0RF No Action hydrochlorothiazide 25 mg tablet 25 mg PO QAM Qty: 90 1RF Eliquis 2.5 mg tablet 2.5 mg PO BID bisacodyl [Dulcolax (bisacodyl)] 5 mg tablet,delayed release (DR/EC) 10 mg PO DAILY Qty: 60 0RF polyethylene glycol 3350 [Miralax] 17 gram/dose powder 17 g PO DAILY PRN (Reason: constipation) Qty: 238 2RF loratadine 10 mg tablet 10 mg PO DAILY Qty: 20 0RF methocarbamol 500 mg tablet 500 mg PO QID hydrocodone-acetaminophen 5-325 mg tablet 1 tab PO BID PRN (Reason: pain) 5 Days Qty: 10 0RF amlodipine 10 mg tablet 10 mg PO DAILY Qty: 90 1RF losartan 100 mg tablet 100 mg PO DAILY Qty: 90 1RF clonidine HCl 0.1 mg tablet 0.1 mg PO Q8H PRN (Reason: For blood pressure greater than 150/100.) Qty: 30 0RF Discharge Orders: Discharge ED (Routine); Ordered 02/03/24 Ordered By: Geoff Castillo Referrals: Mike Campos MD [Primary Care Provider] - Patient Instructions: Clear Liquid Diet (ED), Gastroenteritis (ED), Opioid Safety, Pain Management Activity Restrictions/Additional Instructions: Thank you for choosing [facility] for your healthcare needs today. It is very important that you follow up as instructed or that you return to the Emergency Department should you have concerns or if your condition changes or worsens in any way. Sign Out Sign Out Data: Patient Sign Out occurred on 02/03/24 at 06:21. Patient's care was discussed, and care was transferred from Tucker Rodriguez DO to Geoff Castillo DO. Coding Level of Care Code ED Agricultural Education Instructor for Chg Fwd Documented by User: Geoff Castillo DO 02/03/24 14:15 HPI - Abdominal Pain 2 General: Chief Complaint: Abdominal Pain Stated Complaint: rib flank right side pain Time Seen by Provider: 02/03/24 04:42 History of Present Illness: Associated Symptoms: Denies chills, dysuria and fever(s) Review of Systems 2 Const: Denies: fever(s) or chills Card: Denies: chest pain Resp: Reports: dyspnea; Denies: productive cough, non-productive cough or wheezing GI: Denies: abdominal pain : Denies: dysuria, urinary frequency or urinary urgency Musc: Denies: neck pain or back pain Skin/Breast: Denies: rash PFSH ED 2 PFSH: Medical History History of trigger finger surgical repair HTN (hypertension) Surgical History History of nephrectomy, left (~2007) Family History Grandmother Cancer ovarian Family/Other Cancer x3 maternal aunts-ovarian Other Anesthesia complication CAD (coronary artery disease) Dementia Diabetes Hyperlipidemia Hypertension Lung disease Stroke Denies family history of Clotting disorder Psychiatric illness Chronic kidney disease (CKD) Bleeding disorder Social History Smoking and tobacco/nicotine status: former use of tobacco/nicotine Alcohol intake: never Substance/Drug Use: former Date of last use: 07/2022 marijuana Lives independently: Yes Marital status: Single Number of children: 0 Current occupational status: employed Current occupation: [employer] in [employer] Current gender identity: Male Special guadalupe needs: No Agree to transfusion: Yes Physical Exam 2 Const: ORIENTATION/CONSCIOUSNESS: Yes awake, Yes oriented to person, Yes oriented to place and Yes oriented to time GI: COMMON NORMALS: Soft to palpation and No hepatosplenomegaly present A USCULTATION: Yes normoactive bowel sounds PALPATION: Yes Soft to palpation, No Tenderness to palpation present (GI), No Guarding due to palpation present (GI) and Yes No hepatosplenomegaly present Neuro: ARCENIO COMA SCALE: document GCS findings Arcenio coma scale total score: 15 SENSORIUM/ORIENTATION: Yes oriented to person, Yes oriented to place and Yes oriented to time Course 2 Vital Signs: Vital signs: Vital Signs Temperature 98 F 02/03/24 03:52 Pulse Rate 94 02/03/24 04:04 Respiratory Rate 16 02/03/24 06:17 Blood Pressure 149/105 02/03/24 04:04 Pulse Oximetry 96 02/03/24 06:17 Oxygen Delivery Me thod Room Air 02/03/24 06:17 MDM - Abdominal Pain Medical Decision Making 28-year-old male with chronic kidney disease. He presents with right-sided flank pain, chest pain, nausea. White blood cell count is 7. Hemoglobin is 12. His D-dimer is significantly elevated at 1.2. CRP is minimally elevated at 13. Other laboratory is not remarkable. Urinalysis is pending. CTA of the chest with abdomen pelvis follow-through is pending as well.' Care assumed at shift labs and imaging reviewed no acute findings some suggestive of reflux and gastroenteritis to clear liquid diet. Advance as tolerated use promethazine as needed. Patient denies significant amount of reflux symptoms. Return if he has further problems. Medical Records I reviewed the patient's medical records. Lab Data I reviewed the patient's lab results. 02/03/24 03:58 07/27/24 03:58 Labs/Radiology: Radiology Impressions Chest/Abdomen/Pelvis CT 02/03/24 05:09 IMPRESSION: 1. No evidence of pulmonary embolus. 2. Long segment thickening of the esophageal mucosa suggestive of reflux esophagitis. 3. Multiple nodular opacities at the left lung base, likely infectious in etiology. Hypersensitivity pneumonitis may present a similar picture. IMPRESSION: 1. No right renal or obstructive ureteral calculi identified. There is no hydronephrosis. 2. Wall thickening of gastric, duodenal and bowel loops suggestive of gastroenteritis. 3. A 10 mm indeterminate lesion in the right lobe of the liver. Correlation with abdominal MRI may be helpful for further characterization if clinically indicated. Laboratory Results WBC 7.22 10^3/uL (3.29-11.43) 02/03/24 03:58 RBC 4.76 10^6/uL (3.85-5.65) 02/03/24 03:58 Hgb 12.70 g/dL (11.27-16.99) 02/03/24 03:58 Hct 39.7 % (37-53) 02/03/24 03:58 MCV 83.4 fl (82-101) 02/03/24 03:58 MCH 26.7 pg (27-33) L 02/03/24 03:58 MCHC 32.0 g/dL (30-55) 02/03/24 03:58 RDW 14.0 % (12.1-15.1) 02/03/24 03:58 Plt Count 316 10^3/cmm (157-399) 02/03/24 03:58 MPV 10.4 fL (7.4-10.4) 02/03/24 03:58 Neut % (Auto) 58.8 % 02/03/24 03:58 Lymph % (Auto) 27.0 % 02/03/24 03:58 [place] % (Auto) 6.0 % 02/03/24 03:58 Eos % (Auto) 7.1 % 02/03/24 03:58 Baso % (Auto) 0.8 % 02/03/24 03:58 Neut # (Auto) 4.25 10^3/uL (1.8-7.7) 02/03/24 03:58 Lymph # (Auto) 2.0 10^3/uL (0.8-4.8) 02/03/24 03:58 [place] # (Auto) 0.4 10^3/uL (0.2-0.9) 02/03/24 03:58 Eos # (Auto) 0.5 10^3/uL (0.0-0.8) 02/03/24 03:58 Baso # (Auto) 0.1 10^3/uL (0.0-0.1) 02/03/24 03:58 Nucleated RBC % (auto) 0 % 02/03/24 03:58 Nucleated RBCs # 0.0 /100WBC 02/03/24 03:58 D-Dimer 1.22 ug/mLFEU (0-0.59) H 02/03/24 03:58 Sodium 140 mmol/L (136-145) 02/03/24 03:58 Potassium 4.0 mmol/L (3.5-5.1) 02/03/24 03:58 Chloride 104 mmol/L (98-107) 02/03/24 03:58 Carbon Dioxide 26 mmol/L (22-29) 02/03/24 03:58 Anion Gap 14.0 (5-19) 02/03/24 03:58 BUN 13 mg/dL (6-20) 02/03/24 03:58 Creatinine 1.7 mg/dL (0.7-1.2) H 02/03/24 03:58 GFR Calculation 47.9 mL/min (90-130) L 02/03/24 03:58 Glucose 128 mg/dL (65-115) H 02/03/24 03:58 Calculated Osmolality 292 mOsm/kg (285-295) 02/03/24 03:58 Calcium 8.9 mg/dL (8.5-10.5) 02/03/24 03:58 Total Bilirubin 0.3 mg/dL (0.15-1.2) 02/03/24 03:58 AST 15 U/L (0-40) 02/03/24 03:58 ALT 13 U/L (0-41) 02/03/24 03:58 Alkaline Phosphatase 288 U/L (40-130) H 02/03/24 03:58 C-Reactive Protein 13.2 mg/L (0.0-4.9) H 02/03/24 03:58 Total Protein 7.0 g/dL (6.6-8.7) 02/03/24 03:58 Albumin 3.9 g/dL (3.5-5.2) 02/03/24 03:58 Globulin 3.1 g/dL (1.3-4.6) 02/03/24 03:58 Lipase 25 U/L (13-60) 02/03/24 03:58 Urine Color Yellow (Yellow) 02/03/24 05:55 Urine Appearance Clear (CLEAR) 02/03/24 05:55 Urine pH 7 (5-7) 02/03/24 05:55 Ur Specific [place] 1.005 (1.005-1.030) 02/03/24 05:55 Urine Protein 2+ (Negative) H 02/03/24 05:55 Urine Glucose (UA) Norm (Normal) 02/03/24 05:55 Urine Ketones Negative (Negative) 02/03/24 05:55 Urine Blood Neg (Negative) 02/03/24 05:55 Urine Nitrate Negative (Negative) 02/03/24 05:55 Urine Bilirubin Neg (Negative) 02/03/24 05:55 Urine Urobilinogen Norm mg/dL (Negative) 02/03/24 05:55 Ur Leukocyte Esterase Negative (Negative) 02/03/24 05:55 Urine RBC None /hpf (0-2) 02/03/24 05:55 Urine WBC 0-4 /hpf (0-5) H 02/03/24 05:55 Ur Squamous Epith Cells None /hpf (0-5) 02/03/24 05:55 Amorphous Sediment Not Reportable 02/03/24 05:55 Urine Bacteria Trace /hpf (NONE) 02/03/24 05:55 All radiology interpretation(s) finalized by discharge Discharge Plan Discharge Patient Disposition: Home Clinical Impression: Gastroenteritis Condition: Stable Prescriptions: New promethazine 25 mg tablet 25 mg PO Q6H PRN (Reason: nausea and vomiting) Qty: 20 0RF No Action hydrochlorothiazide 25 mg tablet 25 mg PO QAM Qty: 90 1RF Eliquis 2.5 mg tablet 2.5 mg PO BID bisacodyl [Dulcolax (bisacodyl)] 5 mg tablet,delayed release (DR/EC) 10 mg PO DAILY Qty: 60 0RF polyethylene glycol 3350 [Miralax] 17 gram/dose powder 17 g PO DAILY PRN (Reason: constipation) Qty: 238 2RF loratadine 10 mg tablet 10 mg PO DAILY Qty: 20 0RF methocarbamol 500 mg tablet 500 mg PO QID hydrocodone-acetaminophen 5-325 mg tablet 1 tab PO BID PRN (Reason: pain) 5 Days Qty: 10 0RF amlodipine 10 mg tablet 10 mg PO DAILY Qty: 90 1RF losartan 100 mg tablet 100 mg PO DAILY Qty: 90 1RF clonidine HCl 0.1 mg tablet 0.1 mg PO Q8H PRN (Reason: For blood pressure greater than 150/100.) Qty: 30 0RF Discharge Orders: Discharge ED (Routine); Ordered 02/03/24 Ordered By: Geoff Castillo Referrals: Mike Campos MD [Primary Care Provider] - Patient Instructions: Clear Liquid Diet (ED), Gastroenteritis (ED), Opioid Safety, Pain Management Activity Restrictions/Additional Instructions: Thank you for choosing [facility] for your healthcare needs today. It is very important that you follow up as instructed or that you return to the Emergency Department should you have concerns or if your condition changes or worsens in any way. Sign Out Sign Out Data: Patient Sign Out occurred on 02/03/24 at 06:21. Patient's care was discussed, and care was transferred from Tucker Rodriguez DO to Geoff Castillo DO. Coding Level of Care Code ED Agricultural Education Instructor for Alee Peña
--- NOTE | 2024-02-03 05:09 | CTR_ITS ---
PROCEDURE INFORMATION: Exam: CTA Chest With Contrast Exam date and time: 02/03/2024 5:21 AM Age: 28 years old Clinical indication: Pain and abnormal findings; Abnormal lab test; Other: N/a; Abdominal pain; Right; Abnormal diagnostic tests; Elevated d-dimer; Prior surgery; Surgery date: 6+ months; Surgery type: Left nephrectomy. Left femur orif. Patient HX: C/O RT flank pain with dimer 1.22. History of stage iii ckd. ; Additional info: R flank pain, elevated d dimer TECHNIQUE: Imaging protocol: Computed tomographic angiography of the chest with contrast. Exam focused on the arteries. 3D rendering (Not supervised by radiologist): MIP and/or 3D reconstructed images were created by the technologist. Radiation optimization: All CT scans at this facility use at least one of these dose optimization techniques: automated exposure control; mA and/or kV adjustment per patient size (includes targeted exams where dose is matched to clinical indication); or iterative reconstruction. Contrast material: OMNI 350; Contrast volume: 80 ml; Contrast route: INTRAVENOUS (IV); COMPARISON: CR XR chest 1V portable [id number] 05/10/2023 08:58 RADIATION DOSE METRICS: Total DLP (mGy-cm): 1226.25 FINDINGS: Pulmonary arteries: No filling defects in the pulmonary arteries to suggest pulmonary emboli. Aorta: There is no thoracic aortic aneurysm or dissection. Lungs: There are mild bilateral dependent atelectatic changes of the lower lobes. Multiple nodular opacities at the left lung base, likely infectious in etiology. Pleural spaces: Unremarkable. No pneumothorax. No pleural effusion. Heart: The heart is normal in size. There are no pericardial fluid collections. Esophagus: Long segment thickening of the esophageal mucosa suggestive of reflux esophagitis. Lymph nodes: No enlarged mediastinal or hilar lymph nodes are seen. Diaphragm: There is a small sliding hiatal hernia. Bones/joints: No acute fracture is seen. Soft tissues: Unremarkable. PROCEDURE INFORMATION: Exam: CT Abdomen And Pelvis With Contrast Exam date and time: 02/03/2024 5:21 AM Age: 28 years old Clinical indication: Pain and abnormal findings; Abnormal lab test; Other: N/a; Abdominal pain; Right; Abnormal diagnostic tests; Elevated d-dimer; Prior surgery; Surgery date: 6+ months; Surgery type: Left nephrectomy. Left femur orif. Patient HX: C/O RT flank pain with dimer 1.22. History of stage iii ckd. ; Additional info: R flank pain, elevated d dimer TECHNIQUE: Imaging protocol: Computed tomography of the abdomen and pelvis with contrast. Radiation optimization: All CT scans at this facility use at least one of these dose optimization techniques: automated exposure control; mA and/or kV adjustment per patient size (includes targeted exams where dose is matched to clinical indication); or iterative reconstruction. Contrast material: OMNI 350; Contrast volume: 80 ml; Contrast route: INTRAVENOUS (IV); COMPARISON: CT pelvis con [id number] 05/10/2023 09:01 RADIATION DOSE METRICS: Total DLP (mGy-cm): 1226.25 FINDINGS: Lungs: No consolidation in the visualized lung bases. Liver: The liver is normal in size. In the right lobe of the liver, there is a 10 mm indeterminate lesion, favored to represent a hemangioma. Gallbladder and biliary ducts: The gallbladder is contracted and appears otherwise normal. No calcified gallstones are identified. Pancreas: Normal in size and homogeneous enhancement. No ductal dilation. Spleen: Normal. No splenomegaly. Adrenal glands: Normal. No mass. Kidneys and ureters: There has been a left nephrectomy. There is a surgical scar in the right kidney. No right renal or obstructive ureteral calculi identified. Stomach and bowel: Wall thickening of the gastric, duodenal and bowel loops is suggestive of gastroenteritis. Appendix: No evidence of appendicitis. Intraperitoneal space: No free air. No significant fluid collection. Vasculature: There is no abdominal aortic aneurysm. Lymph nodes: No enlarged retroperitoneal or mesenteric lymph nodes. Urinary bladder: The bladder is markedly distended. It is clear of calcific opacities and shows a normal contour. Reproductive: Unremarkable as visualized. Bones/joints: No acute fracture. There has been ORIF of an old healed proximal femoral fracture. Soft tissues: Normal. CT/CT angio chest w abd pel w con IMPRESSION: 1. No evidence of pulmonary embolus. 2. Long segment thickening of the esophageal mucosa suggestive of reflux esophagitis. 3. Multiple nodular opacities at the left lung base, likely infectious in etiology. Hypersensitivity pneumonitis may present a similar picture. IMPRESSION: 1. No right renal or obstructive ureteral calculi identified. There is no hydronephrosis. 2. Wall thickening of gastric, duodenal and bowel loops suggestive of gastroenteritis. 3. A 10 mm indeterminate lesion in the right lobe of the liver. Correlation with abdominal MRI may be helpful for further characterization if clinically indicated.
[2024-02-03] MEDS: iohexol 350 mg/mL 500 mL Btl (per mL) IV (05:26)
[2024-02-03 06:17] VITALS: RESP 16; O2SAT 96
[2024-02-03 07:09] LABS: Specific Gravity, Urine 1.005 (1.005-1.030); Urine Appearance Clear (CLEAR); Urine Color Yellow (Yellow); pH Urine 7 (5-7)
[2024-02-03 07:10] LABS: Add Urine Culture? No; Add Urine Microscopic? YES; Bacteria Urine TRACE /hpf; Bilirubin Urine Neg (Negative); Blood Urine Neg (Negative); Glucose Urine UA Norm (Normal); Ketones Urine Negative (Negative); Leukocyte Esterase Urine Negative (Negative); Nitrate Urine Negative (Negative); Protein Urine 2+ (Negative); Urobilinogen Urine Norm (Negative); WBC Urine 0-4 /hpf (0-5)
== END 2024-02-03 08:10 | disposition home or self-care (01) ==
PROVIDERS: Emergency Medicine; Emergency Provider Family Medicine; PCP Family Medicine
DX: K52.9 Noninfective gastroenteritis and colitis, unspecified (principal); Z79.01 Long term (current) use of anticoagulants; Z87.891 Personal history of nicotine dependence; I10 Essential (primary) hypertension
CPT/HCPCS: 71275; 74177; 80053; 81001; 83690; 85025; 85378; 86140; 96361; 96374; 96375; 99285; J1170; J2405; J7030; Q9967

== ENCOUNTER 2024-05-25 15:37 | Emergency (ER) | payer OTHER, SELFPAY ==
[2024-05-25 15:40] VITALS: BP 163/120; PULSE 86; RESP 16; TEMP 36.9; O2SAT 99; BMI 31.0
--- NOTE | 2024-05-25 15:48 | XRR_ITS ---
PROCEDURE INFORMATION: Exam: XR Abdomen Exam date and time: 05/25/2024 3:56 PM Age: 28 years old Clinical indication: Constipation; Prior surgery; Surgery date: 6+ months; Surgery type: Lt nephrectomy; Patient HX: Abdomen pain; Bloody stool TECHNIQUE: Imaging protocol: Radiologic exam of the abdomen. Views: Frontal supine view of the abdomen. 1 View. COMPARISON: CT angio chest w abd pel w con 02/03/2024 5:21 AM FINDINGS: Gastrointestinal tract: Moderately increased colonic stool burden. No definitive evidence bowel obstruction. Surgical clips visualized in the left mid abdomen. Bones/joints: No acute osseous abnormality. Partially visualized hardware in the right femoral head XR/XR KUB [id number] IMPRESSION: Moderately increased colonic stool burden suggesting constipation. No definitive evidence bowel obstruction.
--- NOTE | 2024-05-25 15:57 | W.ED.ABDPA2 ---
HPI - Abdominal Pain General: Chief Complaint: Abdominal Pain Stated Complaint: abd pain, blood in stool Time Seen by Provider: 05/25/24 15:41 History of Present Illness: Pranav is a 28-year-old male that presents to the emergency department with recent onset of abdominal pain, bloody stools. Reports developed sharp stabbing pain last night. This prompted him to leave work. While at home he was able to get comfortable and go to sleep and this afternoon when he woke up but 1300 he had a bloody stool. He reports abdominal pain that is sharp in nature. He denies nausea vomiting. He denies history of hemorrhoids. He has only had 1 bowel movement. He does report bouts of constipation this week. Associated Symptoms: Reports constipation and hematochezia; Denies chills, dysuria and fever(s) Related Data Home Medications Medication Instructions Recorded Confirmed apixaban 2.5 mg tablet (Eliquis) 2.5 mg PO BID 10/11/23 12/12/23 methocarbamol 500 mg tablet 500 mg PO QID 11/06/23 12/12/23 Previous Rx's Medication Instructions Recorded loratadine 10 mg tablet 10 mg PO DAILY #20 tabs 03/27/23 clonidine HCl 0.1 mg tablet 0.1 mg PO Q8H PRN For blood 06/30/23 pressure greater than 150/100. #30 tabs hydrochlorothiazide 25 mg tablet 25 mg PO QAM #90 tabs 08/31/23 bisacodyl 5 mg tablet,delayed 10 mg (2 x 5 mg) PO DAILY #60 tabs 10/11/23 release (Dulcolax (bisacodyl)) polyethylene glycol 3350 17 17 g PO DAILY PRN constipation 10/11/23 gram/dose oral powder (Miralax) #238 grams amlodipine 10 mg tablet 10 mg PO DAILY #90 tabs 12/12/23 hydrocodone 5 mg-acetaminophen 325 1 tab PO BID PRN pain 5 days #10 12/12/23 mg tablet tabs losartan 100 mg tablet 100 mg PO DAILY #90 tabs 12/12/23 promethazine 25 mg tablet 25 mg PO Q6H PRN nausea and 02/03/24 vomiting #20 tabs ondansetron 4 mg disintegrating 4 mg PO TID PRN nausea and 05/25/24 tablet vomiting 5 days #20 tabs Allergies Allergy/AdvReac Type Severity Reaction Status Date / Time bacitracin Allergy Intermediate ALGY-Bliste Verified 05/25/24 15:45 [From Neosporin r ([id number])] neomycin Allergy Intermediate ALGY-Bliste Verified 05/25/24 15:45 [From Neosporin r ([id number])] polymyxin B Allergy Intermediate ALGY-Bliste Verified 05/25/24 15:45 [From Neosporin r ([id number])] amoxicillin [From Augmentin] Allergy Unknown Unknown Verified 05/25/24 15:45 clavulanic acid Allergy Unknown Unknown Verified 05/25/24 15:45 [From Augmentin] sulfamethoxazole Allergy Unknown Unknown Verified 05/25/24 15:45 [From Bactrim] trimethoprim [From Bactrim] Allergy Unknown Unknown Verified 05/25/24 15:45 Review of Systems Const: Denies: fever(s) or chills Card: Denies: chest pain Resp: Denies: dyspnea, productive cough, non-productive cough or wheezing GI: Reports: abdominal pain, constipation and hematochezia : Denies: dysuria, urinary frequency or urinary urgency Musc: Denies: neck pain or back pain Skin/Breast: Denies: rash PFSH ED PFSH: Medical History (Updated 05/25/24 @ 18:25 by CHAVO Patel) Chronic kidney disease History of trigger finger surgical repair HTN (hypertension) Surgical History (Updated 05/25/24 @ 18:25 by CHAVO Patel) History of nephrectomy, left (~2007) Family History Grandmother Cancer ovarian Family/Other Cancer x3 maternal aunts-ovarian Other Anesthesia complication CAD (coronary artery disease) Dementia Diabetes Hyperlipidemia Hypertension Lung disease Stroke Denies family history of Clotting disorder Psychiatric illness Chronic kidney disease (CKD) Bleeding disorder Social History Smoking and tobacco/nicotine status: former use of tobacco/nicotine Alcohol intake: never Substance/Drug Use: former Date of last use: 07/2022 marijuana Lives independently: Yes Marital status: Single Number of children: 0 Current occupational status: employed Current occupation: [employer] in [employer] Current gender identity: Male Special guadalupe needs: No Agree to transfusion: Yes Physical Exam Const: COMMON NORMALS: no acute distress GENERAL APPEARANCE: cooperative; not ill appearing and not frail appearing ORIENTATION/CONSCIOUSNESS: Yes awake, Yes oriented to person, Yes oriented to place and Yes oriented to time HENMT: COMMON NORMALS: normocephalic, atraumatic and Normal external nose present HEAD & SCALP: normocephalic and atraumatic FACE & SINUS: normal facial exam and face symmetric NOSE: Normal external nose present Eye: COMMON NORMALS: Equal, round and reactive pupils present and EOMs intact bilaterally PUPIL: Yes Equal, round and reactive pupils present Neck/C-Spine: GENERAL: Yes trachea midline Chest: CHEST: Yes Symmetrical chest wall rise Resp: COMMON NORMALS: normal respiratory effort, No retractions, No use of accessory muscles and clear to auscultation bilaterally AUSCULTATION: clear to auscultation bilaterally Cardio: COMMON NORMALS: regular rate and regular rhythm RATE: regular rate RHYTHM: regular rhythm GI: COMMON NORMALS: Normal to inspection, nondistended, normoactive bowel sounds present, Soft to palpation and No hepatosplenomegaly present AUSCULTATION: Yes normoactive bowel sounds PALPATION: Yes Soft to palpation, Yes Tenderness to palpation present (GI), No Guarding due to palpation present (GI) and Yes No hepatosplenomegaly present Extremity: COMMON NORMALS: no pedal edema Neuro: ARCENIO COMA SCALE: document GCS findings Arcenio coma scale eye opening: Spontaneous [place] coma scale verbal response: Orientated [place] coma scale motor response: Obey commands Arcenio coma scale total score: 15 SENSORIUM/ORIENTATION: Yes oriented to person, Yes oriented to place and Yes oriented to time SENSORY EXAM: Yes extremities (intact) Psych: COMMON NORMALS: speech normal SPEECH: Yes normal speech Skin: COMMON NORMALS: no rashes or lesions noted GENERAL SKIN EXAM: no rashes or lesions noted Course Vital Signs: Vital signs: Vital Signs Temperature 98.5 F 05/25/24 15:40 Pulse Rate 80 05/25/24 16:56 Respiratory Rate 18 05/25/24 16:15 Blood Pressure 147/89 05/25/24 16:56 Pulse Oximetry 96 05/25/24 16:56 Oxygen Delivery Me thod Room Air 05/25/24 16:56 MDM - Abdominal Pain Medical Decision Making Differential diagnosis includes constipation, gastroenteritis, inflammatory bowel, hemorrhoids, appendicitis. Patient is a 28-year-old male with significant history for nephrectomy and chronic kidney disease. He presented with hematochezia. I obtained a CT abdomen pelvis without contrast. Imaging is limited but does not reveal any evidence of appendicitis, gastroenteritis, diverticulitis. He does have significant colonic burden. He definitely needs to have a bowel movement. He does not appear well and I recommended admission for further evaluation but patient is declining. He has no significant leukocytosis or anemias. He has no significant electrolyte abnormality. His creatinine baseline is usually 1.6 and currently is 1.8. I talked with him about monitoring his symptoms and when to return. We are going to send him home with mag citrate, fleets enema, 2 doses of Zofran and a prescription of Zofran. Patient and his significant other are agreeable with plan and all questions were answered. At this time no further diagnostics are warranted. Lab Data 05/25/24 15:59 05/25/24 15:59 Labs/Radiology: Radiology Impressions KUB X-Ray 05/25/24 15:48 IMPRESSION: Moderately increased colonic stool burden suggesting constipation. No definitive evidence bowel obstruction. Abdomen/Pelvis CT 05/25/24 16:28 IMPRESSION: 1. Stable postsurgical changes from left-sided nephrectomy. The right kidney appears unchanged from prior exams with no evidence of hydronephrosis or obstructing ureteral calculus. 2. Moderately increased colonic stool burden suggesting constipation. No evidence of diverticulosis or acute diverticulitis. Laboratory Results WBC 7.57 10^3/uL (3.29-11.43) 05/25/24 15:59 RBC 5.70 10^6/uL (3.85-5.65) H 05/25/24 15:59 Hgb 15.60 g/dL (11.27-16.99) 05/25/24 15:59 Hct 47.6 % (37-53) 05/25/24 15:59 MCV 83.5 fl (82-101) 05/25/24 15:59 MCH 27.4 pg (27-33) 05/25/24 15:59 MCHC 32.8 g/dL (30-55) 05/25/24 15:59 RDW 13.0 % (12.1-15.1) 05/25/24 15:59 Plt Count 309 10^3/cmm (157-399) 05/25/24 15:59 MPV 10.4 fL (7.4-10.4) 05/25/24 15:59 Neut % (Auto) 58.0 % 05/25/24 15:59 Lymph % (Auto) 25.0 % 05/25/24 15:59 [place] % (Auto) 6.2 % 05/25/24 15:59 Eos % (Auto) 9.6 % 05/25/24 15:59 Baso % (Auto) 1.1 % 05/25/24 15:59 Neut # (Auto) 4.39 10^3/uL (1.8-7.7) 05/25/24 15:59 Lymph # (Auto) 1.9 10^3/uL (0.8-4.8) 05/25/24 15:59 [place] # (Auto) 0.5 10^3/uL (0.2-0.9) 05/25/24 15:59 Eos # (Auto) 0.7 10^3/uL (0.0-0.8) 05/25/24 15:59 Baso # (Auto) 0.1 10^3/uL (0.0-0.1) 05/25/24 15:59 Nucleated RBC % (auto) 0 % 05/25/24 15:59 Nucleated RBCs # 0.0 /100WBC 05/25/24 15:59 Sodium 134 mmol/L (136-145) L 05/25/24 15:59 Potassium 4.1 mmol/L (3.5-5.1) 05/25/24 15:59 Chloride 97 mmol/L (98-107) L 05/25/24 15:59 Carbon Dioxide 27 mmol/L (22-29) 05/25/24 15:59 Anion Gap 14.1 (5-19) 05/25/24 15:59 BUN 32 mg/dL (6-20) H 05/25/24 15:59 Creatinine 1.8 mg/dL (0.7-1.2) H 05/25/24 15:59 GFR Calculation 44.8 mL/min (90-130) L 05/25/24 15:59 Glucose 118 mg/dL (65-115) H 05/25/24 15:59 Calculated Osmolality 286 mOsm/kg (285-295) 05/25/24 15:59 Lactic Acid 1.0 mmol/L (0.5-2.2) 05/25/24 15:59 Calcium 9.5 mg/dL (8.5-10.5) 05/25/24 15:59 Total Bilirubin 0.4 mg/dL (0.15-1.2) 05/25/24 15:59 AST 22 U/L (0-40) 05/25/24 15:59 ALT 18 U/L (0-41) 05/25/24 15:59 Alkaline Phosphatase 296 U/L (40-130) H 05/25/24 15:59 Total Protein 7.4 g/dL (6.6-8.7) 05/25/24 15:59 Albumin 4.1 g/dL (3.5-5.2) 05/25/24 15:59 Globulin 3.3 g/dL (1.3-4.6) 05/25/24 15:59 Lipase 30 U/L (13-60) 05/25/24 15:59 All radiology interpretation(s) finalized by discharge Discharge Plan Discharge Patient Disposition: Home Clinical Impression: Stage 3b chronic kidney disease (CKD), History of nephrectomy, left, Abdominal pain, Constipation HTN (hypertension) Qualifiers: Hypertension type: unspecified Qualified Code(s): I10 - Essential (primary) hypertension Condition: Stable Prescriptions: New ondansetron 4 mg tablet,disintegrating 4 mg PO TID PRN (Reason: nausea and vomiting) 5 Days Qty: 20 0RF No Action hydrochlorothiazide 25 mg tablet 25 mg PO QAM Qty: 90 1RF Eliquis 2.5 mg tablet 2.5 mg PO BID bisacodyl [Dulcolax (bisacodyl)] 5 mg tablet,delayed release (DR/EC) 10 mg PO DAILY Qty: 60 0RF polyethylene glycol 3350 [Miralax] 17 gram/dose powder 17 g PO DAILY PRN (Reason: constipation) Qty: 238 2RF loratadine 10 mg tablet 10 mg PO DAILY Qty: 20 0RF methocarbamol 500 mg tablet 500 mg PO QID hydrocodone-acetaminophen 5-325 mg tablet 1 tab PO BID PRN (Reason: pain) 5 Days Qty: 10 0RF amlodipine 10 mg tablet 10 mg PO DAILY Qty: 90 1RF losartan 100 mg tablet 100 mg PO DAILY Qty: 90 1RF clonidine HCl 0.1 mg tablet 0.1 mg PO Q8H PRN (Reason: For blood pressure greater than 150/100.) Qty: 30 0RF promethazine 25 mg tablet 25 mg PO Q6H PRN (Reason: nausea and vomiting) Qty: 20 0RF Discharge Orders: Discharge ED (Routine); Ordered 05/25/24 Ordered By: Shantanu Holguin Referrals: Mike Campos MD [Primary Care Provider] - Discharge Diet: Advance as tolerated Discharge Activity: Resume usual activity Patient Instructions: Abdominal Pain (ED), Opioid Safety, Pain Management Activity Restrictions/Additional Instructions: Please take medications as prescribed Please return to the emergency department for new concerning or worsening symptoms I want you to use the mag citrate to help with a bowel movement. I also recommend using the fleets enema. This is inserted in the rectum. Both of these medications will help to unburden your bowels. I want you to watch her symptoms closely. If they evolve, worsen then you probably need to be reevaluated. Make sure you are getting plenty of fluids I want you to follow-up with your primary care doctor to make sure that you are renal function returns to baseline. Coding Level of Care Code ED Tractor Expert for Alee Peña
[2024-05-25 16:04] LABS: Basophils # 0.1 10^3/uL (0.0-0.1); Basophils % 1.1 %; Eosinophils # 0.7 10^3/uL (0.0-0.8); Eosinophils % 9.6 %; Hematocrit 47.6 % (37-53); Lymphocytes # 1.9 10^3/uL (0.8-4.8); Mean Corpuscular HGB Conc 32.8 g/dL (30-55); Mean Corpuscular Hemoglobin 27.4 pg (27-33); Mean Corpuscular Volume 83.5 fl (82-101); Mean Platelet Volume 10.4 fL (7.4-10.4); Monocytes # 0.5 10^3/uL (0.2-0.9); Monocytes % 6.2 %; Neutrophils # 4.39 10^3/uL (1.8-7.7); Nucleated Red Blood Cells % 0 %; Platelet Count 309 10^3/cmm (157-399); White Blood Count 7.57 10^3/uL (3.29-11.43)
[2024-05-25] MEDS: ondansetron 2 mg/ML SDV 2 mL 4 MG IVP (16:12)
[2024-05-25 16:15] VITALS: RESP 18
[2024-05-25] MEDS: morphine 4 mg/mL SDV 1 mL 2 MG IVP (16:15)
[2024-05-25] MEDS: sodium chloride 0.9% 1,000 ML 999 ML IV (16:17)
[2024-05-25 16:21] LABS: Alanine Aminotransferase 18 U/L (0-41); Albumin Level 4.1 g/dL (3.5-5.2); Alkaline Phosphatase 296 U/L (40-130); Anion Gap 14.1 (5-19); Aspartate Amino Transferase 22 U/L (0-40); Blood Urea Nitrogen 32 mg/dL (6-20); Calcium 9.5 mg/dL (8.5-10.5); Carbon Dioxide 27 mmol/L (22-29); Chloride 97 mmol/L (98-107); Creatinine Clr Calc Pharmacy 68.9653; Globulin 3.3 g/dL (1.3-4.6); Glomerular Filtration Rate 44.8 mL/min (90-130); Glucose 118 mg/dL (65-115); Lipase 30 U/L (13-60); Osmolality Calculated 286 mOsm/kg (285-295); Potassium 4.1 mmol/L (3.5-5.1); Sodium 134 mmol/L (136-145); Total Bilirubin 0.4 mg/dL (0.15-1.2); Total Protein 7.4 g/dL (6.6-8.7)
--- NOTE | 2024-05-25 16:28 | CTR_ITS ---
PROCEDURE INFORMATION: Exam: CT Abdomen And Pelvis Without Contrast Exam date and time: 05/25/2024 4:47 PM Age: 28 years old Clinical indication: Abdominal pain; Generalized; Prior surgery; Surgery date: 6+ months; Surgery type: Nephrectomy; Additional info: Abdominal pain, hematochezia TECHNIQUE: Imaging protocol: Computed tomography of the abdomen and pelvis without contrast. Radiation optimization: All CT scans at this facility use at least one of these dose optimization techniques: automated exposure control; mA and/or kV adjustment per patient size (includes targeted exams where dose is matched to clinical indication); or iterative reconstruction. COMPARISON: CT angio chest w abd pel w con 02/03/2024 5:21 AM RADIATION DOSE METRICS: Total DLP (mGy-cm): 739.13 FINDINGS: Lungs: Lung bases are clear. Liver: Normal. No mass. Prophecy identified indeterminate right hepatic lobe lesion is not well visualized on this noncontrast examination. Gallbladder and biliary ducts: Normal. No calcified stones. No ductal dilation. Pancreas: Normal. No ductal dilation. Spleen: Normal. No splenomegaly. Adrenal glands: Normal. No mass. Kidneys and ureters: Status post left nephrectomy. The right kidney displays a lobulated contour. There is no evidence of nephrolithiasis or right-sided hydronephrosis. Mild cortical thinning along the interpolar region of the right kidney suggests chronic scarring. Findings are unchanged from prior exam Stomach and bowel: Moderately increased colonic stool burden. No evidence of diverticulosis or acute diverticulitis. Appendix: No evidence of acute appendicitis. Intraperitoneal space: No intraperitoneal free air or fluid. Vasculature: Unremarkable. No abdominal aortic aneurysm. Lymph nodes: Unremarkable. No enlarged lymph nodes. Urinary bladder: The urinary bladder is unremarkable. Reproductive: Unremarkable as visualized. Bones/joints: Screw and tika fixation in the right femoral head and neck. No acute osseous abnormality. Soft tissues: Unremarkable. CT/CT abdomen pelvis wo con [id number] IMPRESSION: 1. Stable postsurgical changes from left-sided nephrectomy. The right kidney appears unchanged from prior exams with no evidence of hydronephrosis or obstructing ureteral calculus. 2. Moderately increased colonic stool burden suggesting constipation. No evidence of diverticulosis or acute diverticulitis.
[2024-05-25 16:48] VITALS: BP 148/101
[2024-05-25 16:56] VITALS: BP 147/89; PULSE 80; O2SAT 96
[2024-05-25 19:00] VITALS: BP 123/95; PULSE 78; RESP 16; O2SAT 94
== END 2024-05-25 18:59 | disposition home or self-care (01) ==
PROVIDERS: Emergency Medicine; Emergency Provider Nurse Practitioner; PCP Family Medicine
DX: I12.9 Hypertensive chronic kidney disease with stage 1 through stage 4 chronic kidney disease, or unspecified chronic kidney disease (principal); K59.00 Constipation, unspecified; Z87.891 Personal history of nicotine dependence
CPT/HCPCS: 74018; 74176; 80053; 83605; 83690; 85025; 96374; 96375; 99285; J2270; J2405; J7030

== ENCOUNTER 2024-06-23 05:05 | Emergency (ER) | payer OTHER, SELFPAY ==
[2024-06-23 05:25] VITALS: BP 121/97; PULSE 94; O2SAT 94
[2024-06-23 05:26] VITALS: BP 121/97; PULSE 112; RESP 20; TEMP 36.6; O2SAT 96; BMI 29.5
--- NOTE | 2024-06-23 05:31 | W.ED.ABDPA2 ---
Documented by User: Sherwin Young DO 06/23/24 05:33 HPI - Abdominal Pain General: Chief Complaint: Abdominal Pain Stated Complaint: n/v stomach pain feverish Time Seen by Provider: 06/23/24 05:30 History of Present Illness: Patient resents to the ER with right-sided upper quadrant abdominal pain x 1 day. Patient stated he went to bed yesterday fine and woke up like this about 1830.. Patient has had nausea and vomiting. Patient not been able to keep any fluid or food down. Patient does not have a history of abdominal pain. Patient still has his gallbladder. Denies any history of pancreatitis. Patient is only have 1 kidney. Related Data Home Medications Medication Instructions Recorded Confirmed apixaban 2.5 mg tablet (Eliquis) 2.5 mg PO BID 10/11/23 12/12/23 methocarbamol 500 mg tablet 500 mg PO QID 11/06/23 12/12/23 Previous Rx's Medication Instructions Recorded loratadine 10 mg tablet 10 mg PO DAILY #20 tabs 03/27/23 clonidine HCl 0.1 mg tablet 0.1 mg PO Q8H PRN For blood 06/30/23 pressure greater than 150/100. #30 tabs hydrochlorothiazide 25 mg tablet 25 mg PO QAM #90 tabs 08/31/23 bisacodyl 5 mg tablet,delayed 10 mg (2 x 5 mg) PO DAILY #60 tabs 10/11/23 release (Dulcolax (bisacodyl)) polyethylene glycol 3350 17 17 g PO DAILY PRN constipation 10/11/23 gram/dose oral powder (Miralax) #238 grams amlodipine 10 mg tablet 10 mg PO DAILY #90 tabs 12/12/23 hydrocodone 5 mg-acetaminophen 325 1 tab PO BID PRN pain 5 days #10 12/12/23 mg tablet tabs losartan 100 mg tablet 100 mg PO DAILY #90 tabs 12/12/23 promethazine 25 mg tablet 25 mg PO Q6H PRN nausea and 02/03/24 vomiting #20 tabs ondansetron 4 mg disintegrating 4 mg PO Q6H PRN nausea and 06/23/24 tablet vomiting #14 tabs Allergies Allergy/AdvReac Type Severity Reaction Status Date / Time bacitracin Allergy Intermediate ALGY-Bliste Verified 05/25/24 15:45 [From Neosporin r ([id number]-[id number])] neomycin Allergy Intermediate ALGY-Bliste Verified 05/25/24 15:45 [From Neosporin r (noo-pgq-afjqm)] polymyxin B Allergy Intermediate ALGY-Bliste Verified 05/25/24 15:45 [From Neosporin r (ops-fhj-bbijv)] amoxicillin [From Augmentin] Allergy Unknown Unknown Verified 05/25/24 15:45 clavulanic acid Allergy Unknown Unknown Verified 05/25/24 15:45 [From Augmentin] sulfamethoxazole Allergy Unknown Unknown Verified 05/25/24 15:45 [From Bactrim] trimethoprim [From Bactrim] Allergy Unknown Unknown Verified 05/25/24 15:45 Review of Systems General: Reports: 10 or more systems reviewed and unremarkable except in HPI and below PFSH ED PFSH: Medical History Chronic kidney disease History of trigger finger surgical repair HTN (hypertension) Surgical History History of nephrectomy, left (~2007) Family History Grandmother Cancer ovarian Family/Other Cancer x3 maternal aunts-ovarian Other Anesthesia complication CAD (coronary artery disease) Dementia Diabetes Hyperlipidemia Hypertension Lung disease Stroke Denies family history of Clotting disorder Psychiatric illness Chronic kidney disease (CKD) Bleeding disorder Social History Smoking and tobacco/nicotine status: former use of tobacco/nicotine Alcohol intake: never Substance/Drug Use: former Date of last use: 07/2022 marijuana Lives independently: Yes Marital status: Single Number of children: 0 Current occupational status: employed Current occupation: [employer] in [employer] Current gender identity: Male Special guadalupe needs: No Agree to transfusion: Yes Physical Exam Const: COMMON NORMALS: no acute distress, average body habitus, patient oriented x3, no limitations, healthy appearing, alert and well nourished Neck/C-Spine: COMMON NORMALS: no JVD Chest: COMMONS NORMALS: normal inspection of the chest and normal palpation of entire chest wall Resp: COMMON NORMALS: normal respiratory effort, No retractions, No use of accessory muscles and clear to auscultation bilaterally AUSCULTATION: clear to auscultation bilaterally Cardio: COMMON NORMALS: no JVD, regular rate, regular rhythm, S1 normal heart sound present, S2 normal heart sound present, No gallops present (Cardio), No clicks present (Cardio), No murmurs present (Cardio) and No rub (Cardio) RATE: regular rate RHYTHM: regular rhythm HEART SOUNDS: S1 normal heart sound present and S2 normal heart sound present GI: COMMON NORMALS: Normal to inspection, nondistended, normoactive bowel sounds present, Soft to palpation, non-tender, No hepatosplenomegaly present and no masses PALPATION: Yes Soft to palpation and Yes No hepatosplenomegaly present Neuro: COMMON NORMALS: patient oriented x3 SENSORIUM/ORIENTATION: Yes alert Course Vital Signs: Vital signs: Vital Signs Temperature 98 F 06/23/24 05:26 Pulse Rate 112 H 06/23/24 05:26 Respiratory Rate 20 H 06/23/24 05:26 Blood Pressure 121/97 06/23/24 05:26 Pulse Oximetry 96 06/23/24 05:26 MDM - Abdominal Pain Medical Records I reviewed the patient's medical records. Lab Data I reviewed the patient's lab results. 06/23/24 05:50 06/23/24 05:50 Labs/Radiology: Laboratory Results WBC 11.27 10^3/uL (3.29-11.43) 06/23/24 05:50 RBC 5.35 10^6/uL (3.85-5.65) 06/23/24 05:50 Hgb 14.70 g/dL (11.27-16.99) 06/23/24 05:50 Hct 45.2 % (37-53) 06/23/24 05:50 MCV 84.5 fl (82-101) 06/23/24 05:50 MCH 27.5 pg (27-33) 06/23/24 05:50 MCHC 32.5 g/dL (30-55) 06/23/24 05:50 RDW 13.2 % (12.1-15.1) 06/23/24 05:50 Plt Count 270 10^3/cmm (157-399) 06/23/24 05:50 MPV 10.6 fL (7.4-10.4) H 06/23/24 05:50 Neut % (Auto) 87.7 % 06/23/24 05:50 Lymph % (Auto) 4.2 % 06/23/24 05:50 Grainger % (Auto) 3.5 % 06/23/24 05:50 Eos % (Auto) 4.0 % 06/23/24 05:50 Baso % (Auto) 0.3 % 06/23/24 05:50 Neut # (Auto) 9.90 10^3/uL (1.8-7.7) H 06/23/24 05:50 Lymph # (Auto) 0.5 10^3/uL (0.8-4.8) L 06/23/24 05:50 Grainger # (Auto) 0.4 10^3/uL (0.2-0.9) 06/23/24 05:50 Eos # (Auto) 0.5 10^3/uL (0.0-0.8) 06/23/24 05:50 Baso # (Auto) 0.0 10^3/uL (0.0-0.1) 06/23/24 05:50 Nucleated RBC % (auto) 0 % 06/23/24 05:50 Nucleated RBCs # 0.0 /100WBC 06/23/24 05:50 Sodium 139 mmol/L (136-145) 06/23/24 05:50 Potassium 4.1 mmol/L (3.5-5.1) 06/23/24 05:50 Chloride 100 mmol/L (98-107) 06/23/24 05:50 Carbon Dioxide 27 mmol/L (22-29) 06/23/24 05:50 Anion Gap 16.1 (5-19) 06/23/24 05:50 BUN 34 mg/dL (6-20) H 06/23/24 05:50 Creatinine 2.0 mg/dL (0.7-1.2) H 06/23/24 05:50 GFR Calculation 39.7 mL/min (90-130) L 06/23/24 05:50 Glucose 116 mg/dL (65-115) H 06/23/24 05:50 Calculated Osmolality 297 mOsm/kg (285-295) H 06/23/24 05:50 Calcium 9.2 mg/dL (8.5-10.5) 06/23/24 05:50 Magnesium 1.9 mg/dL (1.7-2.3) 06/23/24 05:50 Total Bilirubin 0.5 mg/dL (0.15-1.2) 06/23/24 05:50 AST 19 U/L (0-40) 06/23/24 05:50 ALT 21 U/L (0-41) 06/23/24 05:50 Alkaline Phosphatase 220 U/L (40-130) H 06/23/24 05:50 Total Protein 7.0 g/dL (6.6-8.7) 06/23/24 05:50 Albumin 3.9 g/dL (3.5-5.2) 06/23/24 05:50 Globulin 3.1 g/dL (1.3-4.6) 06/23/24 05:50 Lipase 32 U/L (13-60) 06/23/24 05:50 All radiology interpretation(s) finalized by discharge Discharge Plan Discharge Patient Disposition: Home Clinical Impression: Vomiting Condition: Stable Prescriptions: New ondansetron 4 mg tablet,disintegrating 4 mg PO Q6H PRN (Reason: nausea and vomiting) Qty: 14 0RF No Action hydrochlorothiazide 25 mg tablet 25 mg PO QAM Qty: 90 1RF Eliquis 2.5 mg tablet 2.5 mg PO BID bisacodyl [Dulcolax (bisacodyl)] 5 mg tablet,delayed release (DR/EC) 10 mg PO DAILY Qty: 60 0RF polyethylene glycol 3350 [Miralax] 17 gram/dose powder 17 g PO DAILY PRN (Reason: constipation) Qty: 238 2RF loratadine 10 mg tablet 10 mg PO DAILY Qty: 20 0RF methocarbamol 500 mg tablet 500 mg PO QID hydrocodone-acetaminophen 5-325 mg tablet 1 tab PO BID PRN (Reason: pain) 5 Days Qty: 10 0RF amlodipine 10 mg tablet 10 mg PO DAILY Qty: 90 1RF losartan 100 mg tablet 100 mg PO DAILY Qty: 90 1RF clonidine HCl 0.1 mg tablet 0.1 mg PO Q8H PRN (Reason: For blood pressure greater than 150/100.) Qty: 30 0RF promethazine 25 mg tablet 25 mg PO Q6H PRN (Reason: nausea and vomiting) Qty: 20 0RF Discharge Orders: Discharge ED (Routine); Ordered 06/23/24 Ordered By: Satnam Cook Referrals: Mike Campos MD [Primary Care Provider] - 4-7 days Discharge Diet: Advance as tolerated Discharge Activity: Resume usual activity Patient Instructions: Acute Nausea and Vomiting (ED) Coding Level of Care Code ED Quality Process Auditor for Chg Fwd Documented by User: Satnam Cook MD 06/23/24 06:39 HPI - Abdominal Pain General: Chief Complaint: Abdominal Pain Stated Complaint: n/v stomach pain feverish Time Seen by Provider: 06/23/24 05:30 Related Data Home Medications Medication Instructions Recorded Confirmed apixaban 2.5 mg tablet (Eliquis) 2.5 mg PO BID 10/11/23 12/12/23 methocarbamol 500 mg tablet 500 mg PO QID 11/06/23 12/12/23 Previous Rx's Medication Instructions Recorded loratadine 10 mg tablet 10 mg PO DAILY #20 tabs 03/27/23 clonidine HCl 0.1 mg tablet 0.1 mg PO Q8H PRN For blood 06/30/23 pressure greater than 150/100. #30 tabs hydrochlorothiazide 25 mg tablet 25 mg PO QAM #90 tabs 08/31/23 bisacodyl 5 mg tablet,delayed 10 mg (2 x 5 mg) PO DAILY #60 tabs 10/11/23 release (Dulcolax (bisacodyl)) polyethylene glycol 3350 17 17 g PO DAILY PRN constipation 10/11/23 gram/dose oral powder (Miralax) #238 grams amlodipine 10 mg tablet 10 mg PO DAILY #90 tabs 12/12/23 hydrocodone 5 mg-acetaminophen 325 1 tab PO BID PRN pain 5 days #10 12/12/23 mg tablet tabs losartan 100 mg tablet 100 mg PO DAILY #90 tabs 12/12/23 promethazine 25 mg tablet 25 mg PO Q6H PRN nausea and 02/03/24 vomiting #20 tabs ondansetron 4 mg disintegrating 4 mg PO Q6H PRN nausea and 06/23/24 tablet vomiting #14 tabs Allergies Allergy/AdvReac Type Severity Reaction Status Date / Time bacitracin Allergy Intermediate ALGY-Bliste Verified 05/25/24 15:45 [From Neosporin r (tfg-kuv-[id number])] neomycin Allergy Intermediate ALGY-Bliste Verified 05/25/24 15:45 [From Neosporin r (ozt-ngh-bxvpu)] polymyxin B Allergy Intermediate ALGY-Bliste Verified 05/25/24 15:45 [From Neosporin r (mdp-rrh-sdams)] amoxicillin [From Augmentin] Allergy Unknown Unknown Verified 05/25/24 15:45 clavulanic acid Allergy Unknown Unknown Verified 05/25/24 15:45 [From Augmentin] sulfamethoxazole Allergy Unknown Unknown Verified 05/25/24 15:45 [From Bactrim] trimethoprim [From Bactrim] Allergy Unknown Unknown Verified 05/25/24 15:45 PFSH ED PFSH: Medical History Chronic kidney disease History of trigger finger surgical repair HTN (hypertension) Surgical History History of nephrectomy, left (~2007) Family History Grandmother Cancer ovarian Family/Other Cancer x3 maternal aunts-ovarian Other Anesthesia complication CAD (coronary artery disease) Dementia Diabetes Hyperlipidemia Hypertension Lung disease Stroke Denies family history of Clotting disorder Psychiatric illness Chronic kidney disease (CKD) Bleeding disorder Social History Smoking and tobacco/nicotine status: former use of tobacco/nicotine Alcohol intake: never Substance/Drug Use: former Date of last use: 07/2022 marijuana Lives independently: Yes Marital status: Single Number of children: 0 Current occupational status: employed Current occupation: [employer] in [employer] Current gender identity: Male Special guadalupe needs: No Agree to transfusion: Yes Course Vital Signs: Vital signs: Vital Signs Temperature 98 F 06/23/24 05:26 Pulse Rate 112 H 06/23/24 05:26 Respiratory Rate 20 H 06/23/24 05:26 Blood Pressure 121/97 06/23/24 05:26 Pulse Oximetry 96 06/23/24 05:26 MDM - Abdominal Pain Medical Decision Making Patient presents here with nausea vomiting he feels much improved here blood works at his baseline abdominal exam is benign no sign of acute surgical abdomen patient stable for discharge will prescribe Zofran he is follow-up with PCP return if worsening. Lab Data 06/23/24 05:50 06/23/24 05:50 Labs/Radiology: Laboratory Results WBC 11.27 10^3/uL (3.29-11.43) 06/23/24 05:50 RBC 5.35 10^6/uL (3.85-5.65) 06/23/24 05:50 Hgb 14.70 g/dL (11.27-16.99) 06/23/24 05:50 Hct 45.2 % (37-53) 06/23/24 05:50 MCV 84.5 fl (82-101) 06/23/24 05:50 MCH 27.5 pg (27-33) 06/23/24 05:50 MCHC 32.5 g/dL (30-55) 06/23/24 05:50 RDW 13.2 % (12.1-15.1) 06/23/24 05:50 Plt Count 270 10^3/cmm (157-399) 06/23/24 05:50 MPV 10.6 fL (7.4-10.4) H 06/23/24 05:50 Neut % (Auto) 87.7 % 06/23/24 05:50 Lymph % (Auto) 4.2 % 06/23/24 05:50 Grainger % (Auto) 3.5 % 06/23/24 05:50 Eos % (Auto) 4.0 % 06/23/24 05:50 Baso % (Auto) 0.3 % 06/23/24 05:50 Neut # (Auto) 9.90 10^3/uL (1.8-7.7) H 06/23/24 05:50 Lymph # (Auto) 0.5 10^3/uL (0.8-4.8) L 06/23/24 05:50 Grainger # (Auto) 0.4 10^3/uL (0.2-0.9) 06/23/24 05:50 Eos # (Auto) 0.5 10^3/uL (0.0-0.8) 06/23/24 05:50 Baso # (Auto) 0.0 10^3/uL (0.0-0.1) 06/23/24 05:50 Nucleated RBC % (auto) 0 % 06/23/24 05:50 Nucleated RBCs # 0.0 /100WBC 06/23/24 05:50 Sodium 139 mmol/L (136-145) 06/23/24 05:50 Potassium 4.1 mmol/L (3.5-5.1) 06/23/24 05:50 Chloride 100 mmol/L (98-107) 06/23/24 05:50 Carbon Dioxide 27 mmol/L (22-29) 06/23/24 05:50 Anion Gap 16.1 (5-19) 06/23/24 05:50 BUN 34 mg/dL (6-20) H 06/23/24 05:50 Creatinine 2.0 mg/dL (0.7-1.2) H 06/23/24 05:50 GFR Calculation 39.7 mL/min (90-130) L 06/23/24 05:50 Glucose 116 mg/dL (65-115) H 06/23/24 05:50 Calculated Osmolality 297 mOsm/kg (285-295) H 06/23/24 05:50 Calcium 9.2 mg/dL (8.5-10.5) 06/23/24 05:50 Magnesium 1.9 mg/dL (1.7-2.3) 06/23/24 05:50 Total Bilirubin 0.5 mg/dL (0.15-1.2) 06/23/24 05:50 AST 19 U/L (0-40) 06/23/24 05:50 ALT 21 U/L (0-41) 06/23/24 05:50 Alkaline Phosphatase 220 U/L (40-130) H 06/23/24 05:50 Total Protein 7.0 g/dL (6.6-8.7) 06/23/24 05:50 Albumin 3.9 g/dL (3.5-5.2) 06/23/24 05:50 Globulin 3.1 g/dL (1.3-4.6) 06/23/24 05:50 Lipase 32 U/L (13-60) 06/23/24 05:50 Discharge Plan Discharge Patient Disposition: Home Clinical Impression: Vomiting Condition: Stable Prescriptions: New ondansetron 4 mg tablet,disintegrating 4 mg PO Q6H PRN (Reason: nausea and vomiting) Qty: 14 0RF No Action hydrochlorothiazide 25 mg tablet 25 mg PO QAM Qty: 90 1RF Eliquis 2.5 mg tablet 2.5 mg PO BID bisacodyl [Dulcolax (bisacodyl)] 5 mg tablet,delayed release (DR/EC) 10 mg PO DAILY Qty: 60 0RF polyethylene glycol 3350 [Miralax] 17 gram/dose powder 17 g PO DAILY PRN (Reason: constipation) Qty: 238 2RF loratadine 10 mg tablet 10 mg PO DAILY Qty: 20 0RF methocarbamol 500 mg tablet 500 mg PO QID hydrocodone-acetaminophen 5-325 mg tablet 1 tab PO BID PRN (Reason: pain) 5 Days Qty: 10 0RF amlodipine 10 mg tablet 10 mg PO DAILY Qty: 90 1RF losartan 100 mg tablet 100 mg PO DAILY Qty: 90 1RF clonidine HCl 0.1 mg tablet 0.1 mg PO Q8H PRN (Reason: For blood pressure greater than 150/100.) Qty: 30 0RF promethazine 25 mg tablet 25 mg PO Q6H PRN (Reason: nausea and vomiting) Qty: 20 0RF Discharge Orders: Discharge ED (Routine); Ordered 06/23/24 Ordered By: Satnam Cook Referrals: Mike Campos MD [Primary Care Provider] - 4-7 days Discharge Diet: Advance as tolerated Discharge Activity: Resume usual activity Patient Instructions: Acute Nausea and Vomiting (ED) Coding Level of Care Code ED Quality Process Auditor for Alee Peña
[2024-06-23 06:00] VITALS: PULSE 95; O2SAT 94
[2024-06-23 06:03] LABS: Basophils % 0.3 %; Eosinophils # 0.5 10^3/uL (0.0-0.8); Hematocrit 45.2 % (37-53); Lymphocytes # 0.5 10^3/uL (0.8-4.8); Lymphocytes % 4.2 %; Mean Corpuscular HGB Conc 32.5 g/dL (30-55); Mean Corpuscular Hemoglobin 27.5 pg (27-33); Mean Corpuscular Volume 84.5 fl (82-101); Mean Platelet Volume 10.6 fL (7.4-10.4); Monocytes # 0.4 10^3/uL (0.2-0.9); Monocytes % 3.5 %; Neutrophils % 87.7 %; Nucleated Red Blood Cells % 0 %; Platelet Count 270 10^3/cmm (157-399); Red Blood Count 5.35 10^6/uL (3.85-5.65); Red Cell Distribution Width 13.2 % (12.1-15.1); White Blood Count 11.27 10^3/uL (3.29-11.43)
[2024-06-23 06:20] LABS: Alanine Aminotransferase 21 U/L (0-41); Albumin Level 3.9 g/dL (3.5-5.2); Alkaline Phosphatase 220 U/L (40-130); Anion Gap 16.1 (5-19); Aspartate Amino Transferase 19 U/L (0-40); Blood Urea Nitrogen 34 mg/dL (6-20); Calcium 9.2 mg/dL (8.5-10.5); Carbon Dioxide 27 mmol/L (22-29); Chloride 100 mmol/L (98-107); Creatinine Clr Calc Pharmacy 60.6701; Globulin 3.1 g/dL (1.3-4.6); Glomerular Filtration Rate 39.7 mL/min (90-130); Glucose 116 mg/dL (65-115); Lipase 32 U/L (13-60); Magnesium 1.9 mg/dL (1.7-2.3); Osmolality Calculated 297 mOsm/kg (285-295); Potassium 4.1 mmol/L (3.5-5.1); Sodium 139 mmol/L (136-145); Total Bilirubin 0.5 mg/dL (0.15-1.2)
[2024-06-23 06:30] VITALS: PULSE 91; O2SAT 94
[2024-06-23 06:39] VITALS: BP 127/89; PULSE 91; O2SAT 97
[2024-06-23] MEDS: metoclopramide 5 mg/mL SDV 2 mL 10 MG IVP (07:01)
[2024-06-23 07:03] VITALS: BP 137/89; PULSE 92; RESP 16; O2SAT 96
== END 2024-06-23 07:09 | disposition home or self-care (01) ==
PROVIDERS: Emergency Medicine; Emergency Provider Emergency Medicine; PCP Family Medicine
DX: R11.10 Vomiting, unspecified (principal); Z87.891 Personal history of nicotine dependence; I12.9 Hypertensive chronic kidney disease with stage 1 through stage 4 chronic kidney disease, or unspecified chronic kidney disease; N18.9 Chronic kidney disease, unspecified
CPT/HCPCS: 80053; 83690; 83735; 85025; 96374; 99284; J2765

== ENCOUNTER → 2024-08-08 08:36 | Outpatient (BNVA) | payer OTHER, SELFPAY | PROVIDERS: PCP Family Medicine; Visit Provider Emergency Medicine | DX: R11.2 Nausea with vomiting, unspecified (principal) | CPT/HCPCS: 87400 ==

== ENCOUNTER 2025-03-13 00:22 | Emergency (ER) | payer OTHER, SELFPAY ==
[2025-03-13 00:25] VITALS: BP 154/110; PULSE 100; RESP 18; TEMP 36.9; O2SAT 97; BMI 31.0
--- OUTSIDE RECORDS SUMMARY | 2025-03-13 00:31 | XMS_ITS | Patient Health Record ---
Author Organization [facility] Address [address] [place] [address] Care Team Providers Care Claims Associate Name Role Phone Mike Campos MD Primary Care Provider Unavailab mario Kathy Galicia Unavailable [phone] Allergies No Known Allergies Reason For Referral No Information Medications Medication SIG (Take, Route, Frequency, Duration) Notes Start Date End Date Status hydroCHLOROthiazide 25 MG Tablet 1 tablet in the morning Orally Once a day Active amLODIPine Besylate 10 MG Tablet 1 tablet Orally Once a day Active Losartan Potassium 100 MG Tablet 1 tablet Orally Once a day Active Social History Tobacco Use: Social History Observation Description Date Details (start date - stop date) Former Smoker NA - NA Social History Tobacco Use: Social Info Question Answer Notes Tobacco Control (Standard) Tobacco use: Former smoker Additional Details Category Social Info Options Details Drugs/Alcohol: Do you smoke marijuana? Ad mits Do you drink alcohol? No Problems Problem Type SNOMED Code ICD Code Onset Dates Problem Status W/U Status Risk Notes Problem Essential hypertension (20543628) Essential hypertension (I10) Active confirmed Problem Chronic kidney disease stage 3A (disorder) (162042854) Chronic kidney disease, stage 3a (N18.31) Active confirmed Plan Of Treatment Pending Test Test Name Order Date US Doppler Renal Artery-86652 09/12/2023 US Renal w/bladder-39987 09/12/2023 Basic Metabolic Panel (BMP) 41045 2023 Protein (U) Random 57158 09/15/2023 Creatinine (U) 14647 09/15/2023 Basic Metabolic Panel (BMP) 00916 2023 Albumin 94904 12/27/2023 Hemoglobin 85207 12/27/2023 Magnesium (B) 33233 12/27/2023 Phosphorus (B) 86694 12/27/2023 Protein (U) Random 28576 12/27/2023 Uric Acid (B) 95582 12/27/2023 Creatinine (U) 89177 12/27/2023 UA Reflex Micro, Reflex Cult 53460, 8101 5, 11776 12/27/2023 PTH Intact 52362 12/27/2023 Insurance Providers Payer Name Payer Address Payer Phone Subscriber Number Group Number Insured Name Patient Relationship to Insured Coverage Start Date Coverage End Date [facility] [address] [place] [phone] [id number] Pranav Roberts Self - patient is the insured Medical (General) History Medical History History ICD Code hypertension kidney disease kidney stones chronic back or neck pain seasonal allergies/hay fever Surgical History Surgery Date(Month/Year) trigger finger nephrectomy
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
--- NOTE | 2025-03-13 00:46 | ED_ITS ---
HPI - Abdominal Pain 2 General: Chief Complaint: Abdominal Pain Stated Complaint: abd pain all the way through Time Seen by Provider: 03/13/25 00:33 History of Present Illness: 29-year-old male presents emergency room complaining of abdominal pain in the right lower quadrant. States became pain began today. He had nausea and vomiting for the last approximately week. He states the pain gets better after he has episodes of vomiting. No hematochezia or melena, no hematemesis coffee- ground emesis Associated Symptoms: Reports nausea and vomiting; Denies chills, dysuria, fever(s), hematochezia, hematemesis and melena Related Data Previous Rx's ?Medication ?Instructions ?Recorded clonidine HCl 0.1 mg tablet 0.1 mg PO Q8H PRN For bloo d 07/05/24 pressure greater than 150/100. #30 tabs hydrochlorothiazide 25 mg tablet 25 mg PO QAM #90 tabs 07/05/24 loratadine 10 mg tablet 10 mg PO DAILY #20 tabs 06/10 01/30 albuterol sulfate 90 mcg/actuation 2 puff inhalation Q 6H PRN 08/08/24 aerosol inhaler shortness of breath or wheez ing #8.5 grams [id number]-JN 5 ml PO Q6H PRN col d symptoms #118 08/08/24 2 mg-30 mg-10 mg/5 mL oral syrup mL (Bromfed DM) ondansetron 4 mg disintegrating 4 mg PO Q6H PRN nausea and 08/08/24 tablet vomiting #12 tabs oseltamivir 75 mg capsule (Tamiflu) 75 mg PO BID 5 day s #10 caps 08/08/24 amlodipine 10 mg tablet 10 mg PO DAILY #30 tabs 01/08 09/03 losartan 100 mg tablet 100 mg PO DAILY #30 tabs promethazine 25 mg tablet 25 mg PO Q6H PRN nausea and 03/13/25 vomiting #20 tabs Allergies Allergy/AdvReac Type Severity Reaction Status Date / Time bacitracin (From Neosporin Allergy Intermediate ALGY-Bliste Verified 03/13/25 00:29 ([id number])) r neomycin (From Neosporin Allergy Intermediate ALGY-Bliste Verified 03/13/25 00:29 ([id number])) r polymyxin B (From Neosporin Allergy Intermediate ALGY-Bliste Verified 03/13/25 00:29 ([id number])) r amoxicillin (From Augmentin) Allergy Unknown Unknown Verified 03/13/25 00:29 clavulanic acid (From Allergy Unknown Unknown Verified 03/13/25 00:29 Augmentin) sulfamethoxazole (From Allergy Unknown Unknown Verified 03/13/25 00:29 Bactrim) trimethoprim (From Bactrim) Allergy Unknown Unknown Verified 03/13/25 00:29 Review of Systems 2 Const: Denies: fever(s) or chills Card: Denies: chest pain Resp: Denies: dyspnea GI: Reports: abdominal pain, nausea and vomiting; Denies: hematemesis, hematochezia or melena : Denies: dysuria, urinary frequency or urinary urgency Musc: Denies: neck pain or back pain Skin/Breast: Denies: rash PFSH ED 2 PFSH: Medical History Chronic kidney disease History of trigger finger surgical repair HTN (hypertension) Surgical History History of nephrectomy, left (~2007) Family History Grandmother Cancer ovarian Family/Other Cancer x3 maternal aunts-ovarian Other Anesthesia complication CAD (coronary artery disease) Dementia Diabetes Hyperlipidemia Hypertension Lung disease Stroke Denies family history of Clotting disorder Psychiatric illness Chronic kidney disease (CKD) Bleeding disorder Social History Smoking and tobacco/nicotine status: current every day tobacco/nicotine user Alcohol intake: never Substance/Drug Use: former Date of last use: 07/2022 marijuana Lives independently: Yes Marital status: Single Number of children: 0 Current occupational status: employed Current occupation: [employer] in [employer] Current gender identity: Male Special guadalupe needs: No Agree to transfusion: Yes Physical Exam 2 Const: GENERAL APPEARANCE: cooperative ORIENTATION/CONSCIOUSNESS: Yes awake, Yes oriented to person, Yes oriented to place and Yes oriented to time HENMT: COMMON NORMALS: normocephalic, atraumatic and hearing grossly normal bilaterally HEAD & SCALP: normocephalic and atraumatic Resp: COMMON NORMALS: normal respiratory effort, No retractions, No use of accessory muscles and clear to auscultation bilaterally AUSCULTATION: clear to auscultation bilaterally Cardio: COMMON NORMALS: regular rate, regular rhythm and No murmurs present (Cardio) RATE: regular rate RHYTHM: regular rhythm GI: COMMON NORMALS: Soft to palpation and No hepatosplenomegaly present A USCULTATION: Yes normoactive bowel sounds PALPATION: Yes Soft to palpation, No Tenderness to palpation present (GI), No Guarding due to palpation present (GI) and Yes No hepatosplenomegaly present Extremity: COMMON NORMALS: normal to inspection, capillary refill normal, no clubbing, cyanosis or edema, no calf tenderness and no pedal edema Neuro: SENSORIUM/ORIENTATION: Yes oriented to person, Yes oriented to place and Yes oriented to time Skin: COMMON NORMALS: no rashes or lesions noted GENERAL SKIN EXAM: no rashes or lesions noted Course 2 Vital Signs: Vital signs: Vital Signs Temperature 98.5 F 03/13/25 00:25 Pulse Rate 84 03/13/25 02:00 Respiratory Rate 18 03/13/25 00:25 Blood Pressure 151/106 03/13/25 02:00 Pulse Oximetry 98 03/13/25 02:00 Oxygen Delivery Me thod Room Air 03/13/25 00:25 MDM - Abdominal Pain Medical Decision Making CT shows benign-appearing cyst. Otherwise no pathology and laboratory test shows chronic kidney disease and 3+ proteinuria no acute urinary tract infection. Discharge patient home clear liquid diet promethazine to use as needed. Encourage patient to follow-up with regarding the liver finding with his primary care doctor. Radiology report favored benign entity. Medical Records I reviewed the patient's medical records. Lab Data I reviewed the patient's lab results. 03/13/25 01:17 03/13/25 01:17 Labs/Radiology: Radiology Impressions Abdomen/Pelvis CT 03/13/25 01:06 IMPRESSION: 1. No acute intra-abdominal process to explain the patient's symptoms. 2. Indeterminate, stable, 1.5 cm right venkat liver lesion, favored to represent a benign entity such as hemangioma in the absence of underlying hepatic parenchymal pathology. Definitive characterization with MRI abdomen with and without contrast could be obtained if clinically indicated. 3. Postoperative changes from total left nephrectomy. No acute complication. Laboratory Results WBC 10.82 10^3/uL (3.29-11.43) 03/13/25 01:17 RBC 4.83 10^6/uL (3.85-5.65) 03/13/25 01:17 Hgb 13.70 g/dL (11.27-16.99) 03/13/25 01:17 Hct 41.1 % (37-53) 03/13/25 01:17 MCV 85.1 fl (82-101) 03/13/25 01:17 MCH 28.4 pg (27-33) 03/13/25 01:17 MCHC 33.3 g/dL (30-55) 03/13/25 01:17 RDW 13.4 % (12.1-15.1) 03/13/25 01:17 Plt Count 281 10^3/cmm (157-399) 03/13/25 01:17 MPV 10.7 fL (7.4-10.4) H 03/13/25 01:17 Neut % (Auto) 73.4 % 03/13/25 01:17 Lymph % (Auto) 16.1 % 03/13/25 01:17 [place] % (Auto) 4.9 % 03/13/25 01:17 Eos % (Auto) 4.7 % 03/13/25 01:17 Baso % (Auto) 0.6 % 03/13/25 01:17 Neut # (Auto) 7.94 10^3/uL (1.8-7.7) H 03/13/25 01:17 Lymph # (Auto) 1.7 10^3/uL (0.8-4.8) 03/13/25 01:17 [place] # (Auto) 0.5 10^3/uL (0.2-0.9) 03/13/25 01:17 Eos # (Auto) 0.5 10^3/uL (0.0-0.8) 03/13/25 01:17 Baso # (Auto) 0.1 10^3/uL (0.0-0.1) 03/13/25 01:17 Nucleated RBC % (auto) 0 % 03/13/25 01:17 Nucleated RBCs # 0.0 /100WBC 03/13/25 01:17 Sodium 141 mmol/L (136-145) 03/13/25 01:17 Potassium 4.3 mmol/L (3.5-5.1) 03/13/25 01:17 Chloride 106 mmol/L (98-107) 03/13/25 01:17 Carbon Dioxide 23 mmol/L (22-29) 03/13/25 01:17 Anion Gap 16.3 (5-19) 03/13/25 01:17 BUN 26 mg/dL (6-20) H 03/13/25 01:17 Creatinine 1.6 mg/dL (0.7-1.2) H 03/13/25 01:17 GFR Calculation 51.0 mL/min (90-130) L 03/13/25 01:17 Glucose 102 mg/dL (65-115) 03/13/25 01:17 Calculated Osmolality 297 mOsm/kg (285-295) H 03/13/25 01:17 Calcium 9.2 mg/dL (8.5-10.5) 03/13/25 01:17 Total Bilirubin 0.2 mg/dL (0.15-1.2) 03/13/25 01:17 AST 17 U/L (0-40) 03/13/25 01:17 ALT 26 U/L (0-41) 03/13/25 01:17 Alkaline Phosphatase 114 U/L (40-130) 03/13/25 01:17 Total Protein 7.4 g/dL (6.6-8.7) 03/13/25 01:17 Albumin 4.1 g/dL (3.5-5.2) 03/13/25 01:17 Globulin 3.3 g/dL (1.3-4.6) 03/13/25 01:17 Urine Color Yellow (Yellow) 03/13/25 02:03 Urine Appearance Clear (CLEAR) 03/13/25 02:03 Urine pH 7.0 (5-7) 03/13/25 02:03 Ur Specific [place] 1.021 (1.005-1.030) 03/13/25 02:03 Urine Protein 3+ (Negative) A 03/13/25 02:03 Urine Glucose (UA) Negative (Normal) 03/13/25 02:03 Urine Ketones Negative (Negative) 03/13/25 02:03 Urine Blood Negative (Negative) 03/13/25 02:03 Urine Nitrate Negative (Negative) 03/13/25 02:03 Urine Bilirubin Negative (Negative) 03/13/25 02:03 Urine Urobilinogen 1.0 mg/dL (Negative) 03/13/25 02:03 Ur Leukocyte Esterase Negative (Negative) 03/13/25 02:03 Urine RBC 0-2 /hpf (0-2) 03/13/25 02:03 Urine WBC 0-5 /hpf (0-5) 03/13/25 02:03 Ur Squamous Epith Cells 0-5 /hpf (0-5) 03/13/25 02:03 Amorphous Sediment Not Reportable 03/13/25 02:03 Urine Bacteria None seen /hpf (NONE) 03/13/25 02:03 Hyaline Casts 0-4 /lpf H 03/13/25 02:03 All radiology interpretation(s) finalized by discharge Discharge Plan Discharge Patient Disposition: Home Clinical Impression: Abdominal pain HTN (hypertension) Qualifiers: Hypertension type: unspecified Qualified Code(s): I10 - Essential (primary) hypertension Condition: Stable Prescriptions: New promethazine 25 mg tablet 25 mg PO Q6H PRN (Reason: nausea and vomiting) Qty: 20 0RF No Action ondansetron 4 mg tablet,disintegrating 4 mg PO Q6H PRN (Reason: nausea and vomiting) Qty: 12 0RF Rx Instructions: 340b please oseltamivir [Tamiflu] 75 mg capsule 75 mg PO BID 5 Days Qty: 10 0RF [id number] [Bromfed DM] 2-30-10 mg/5 mL syrup 5 ml PO Q6H PRN (Reason: cold symptoms) Qty: 118 0RF albuterol sulfate 90 mcg/actuation HFA aerosol inhaler 2 puff inhalation Q6H PRN (Reason: shortness of breath or wheezing) Qty: 8.5 0RF hydrochlorothiazide 25 mg tablet 25 mg PO QAM Qty: 90 1RF loratadine 10 mg tablet 10 mg PO DAILY Qty: 20 0RF clonidine HCl 0.1 mg tablet 0.1 mg PO Q8H PRN (Reason: For blood pressure greater than 150/100.) Qty: 30 0RF amlodipine 10 mg tablet 10 mg PO DAILY Qty: 30 0RF losartan 100 mg tablet 100 mg PO DAILY Qty: 30 0RF Discharge Orders: Discharge ED (Routine); Ordered 03/13/25 Ordered By: Geoff Castillo Referrals: Mike Campos MD [Primary Care Provider, Family Practice] Discharge Diet: Clear Liquid Discharge Activity: Increase activity as tolerated Patient Instructions: Abdominal Pain (ED), Opioid Safety, Pain Management, Patient Portal & Vitaliy Instructions Activity Restrictions/Additional Instructions: Thank you for choosing [facility] for your healthcare needs today. It is very important that you follow up as instructed or that you return to the Emergency Department should you have concerns or if your condition changes or worsens in any way. Emergency department visits are focused on emergent conditions, in some cases you may require further evaluation on an outpatient basis. You were seen in the emergency room and complained of abdominal pain. Your laboratory test showed some mild chronic kidney disease which is unchanged from what we have seen in the past. Your urine sample showed 3+ protein which is a result of your chronic kidney disease. Your white count is normal and the CT of your abdomen was normal. Recommend clear liquid diet for the next 24 to 48 hours, then advance as tolerated. You are given a prescription for nausea medicines to use as needed. If your symptoms persist follow-up with your primary care doctor. On the CT there was a cyst on the liver. You should follow-up with your primary care doctor regarding this finding. Radiologist felt it most likely represented something benign. (Please note that included in your discharge packet is information concerning opioid safety and pain management. This information is given to all patients were discharged from the ER regardless of their discharge diagnosis or the medicines they usually take or are prescribed.) Print Language: Nepali Coding Level of Care Code ED [employer] Dist[employer] Operator for Alee Peña
[2025-03-13] MEDS: iohexol 350 mg/mL 500 mL Btl (per mL) IV (01:06)
--- NOTE | 2025-03-13 01:06 | CTR_ITS ---
PROCEDURE INFORMATION: Exam: CT Abdomen And Pelvis With Contrast Exam date and time: 03/13/2025 1:50 AM Age: 29 years old Clinical indication: Abdominal pain; Epigastric; Prior surgery; Surgery date: 6+ months; Surgery type: Nephrectomy; Additional info: Abd pain TECHNIQUE: Imaging protocol: Computed tomography of the abdomen and pelvis with contrast. Radiation optimization: All CT scans at this facility use at least one of these dose optimization techniques: automated exposure control; mA and/or kV adjustment per patient size (includes targeted exams where dose is matched to clinical indication); or iterative reconstruction. Contrast material: OMNI 350; Contrast volume: 100 ml; Contrast route: INTRAVENOUS (IV); COMPARISON: CT abdomen pelvis wo con [id number] 05/25/2024 4:47 PM RADIATION DOSE METRICS: Total DLP (mGy-cm): 856.83 FINDINGS: Liver: Hepatic morphology is within normal limits. No surface nodularity noted. Stable, ill-defined, 1.6 cm hypoattenuating observations in hepatic segment 7 (series 4, image 16). Gallbladder and biliary ducts: Normal. No calcified stones. No ductal dilation. Pancreas: Normal. No ductal dilation. Spleen: Normal. No splenomegaly. Adrenal glands: Normal. No mass. Kidneys and ureters: Right renal scarring is present. The right kidney is otherwise normal. Postoperative changes from total left nephrectomy. No acute complication. Stomach and bowel: Unremarkable. No obstruction. No mucosal thickening. Appendix: No evidence of appendicitis. Intraperitoneal space: Unremarkable. No free air. No significant fluid collection. Vasculature: Unremarkable. No abdominal aortic aneurysm. Lymph nodes: Unremarkable. No enlarged lymph nodes. Urinary bladder: Unremarkable as visualized. Reproductive: Unremarkable as visualized. Bones/joints: Partially imaged intramedullary nailing of the right proximal femur. No acute complication. Schmorl's nodes are present. Soft tissues: Unremarkable. CT/CT abdomen pelvis w con* [id number] IMPRESSION: 1. No acute intra-abdominal process to explain the patient's symptoms. 2. Indeterminate, stable, 1.5 cm right venkat liver lesion, favored to represent a benign entity such as hemangioma in the absence of underlying hepatic parenchymal pathology. Definitive characterization with MRI abdomen with and without contrast could be obtained if clinically indicated. 3. Postoperative changes from total left nephrectomy. No acute complication.
[2025-03-13 01:24] LABS: Hematocrit 41.1 % (37-53); Hemoglobin 13.70 g/dL (11.27-16.99); Mean Corpuscular HGB Conc 33.3 g/dL (30-55); Mean Corpuscular Hemoglobin 28.4 pg (27-33); Mean Corpuscular Volume 85.1 fl (82-101); Nucleated Red Blood Cells % 0 %; Platelet Count 281 10^3/cmm (157-399); Red Blood Count 4.83 10^6/uL (3.85-5.65); White Blood Count 10.82 10^3/uL (3.29-11.43)
[2025-03-13 01:28] VITALS: BP 140/96; PULSE 93; O2SAT 97
[2025-03-13 01:30] VITALS: BP 140/95; PULSE 88; O2SAT 97
[2025-03-13 01:42] LABS: Alanine Aminotransferase 26 U/L (0-41); Albumin Level 4.1 g/dL (3.5-5.2); Alkaline Phosphatase 114 U/L (40-130); Anion Gap 16.3 (5-19); Aspartate Amino Transferase 17 U/L (0-40); Blood Urea Nitrogen 26 mg/dL (6-20); Calcium 9.2 mg/dL (8.5-10.5); Carbon Dioxide 23 mmol/L (22-29); Chloride 106 mmol/L (98-107); Creatinine Clr Calc Pharmacy 76.8869; Globulin 3.3 g/dL (1.3-4.6); Glucose 102 mg/dL (65-115); Osmolality Calculated 297 mOsm/kg (285-295); Potassium 4.3 mmol/L (3.5-5.1); Sodium 141 mmol/L (136-145); Total Protein 7.4 g/dL (6.6-8.7)
[2025-03-13 02:00] VITALS: BP 151/106; PULSE 84; O2SAT 98
[2025-03-13 02:23] LABS: Glucose Urine UA Negative (Normal); Nitrate Urine Negative (Negative); Specific Gravity, Urine 1.021 (1.005-1.030)
[2025-03-13 02:28] LABS: Add Urine Microscopic? YES
[2025-03-13 03:42] VITALS: BP 127/85; PULSE 86; O2SAT 98
== END 2025-03-13 03:43 | disposition home or self-care (01) ==
PROVIDERS: Emergency Provider Family Medicine; PCP Family Medicine
DX: R10.9 Unspecified abdominal pain (principal); Z72.0 Tobacco use; I12.9 Hypertensive chronic kidney disease with stage 1 through stage 4 chronic kidney disease, or unspecified chronic kidney disease; N18.9 Chronic kidney disease, unspecified
CPT/HCPCS: 74177; 80053; 81001; 85025; 99285